=== PATIENT | male | born 1930 | race Caucasian/White ===

== ENCOUNTER → 2016-06-07 | Outpatient (CLI) | payer MEDICARE ==
--- NOTE | 2016-06-07 20:08 | CT ---
EXAMINATION TYPE: CT brain wo con DATE OF EXAM: 06/07/2016 7:46 PM COMPARISON: NONE HISTORY: Headache to right restoration. CT DLP: 1135.00 mGycm Automated exposure control for dose reduction was used. FINDINGS: There is cerebral cortical atrophy. There is no mass effect nor midline shift. There is no sign of in tracranial hemorrhage. The calvarium is intact. IMPRESSION: Cerebral atrophy. No acute intracranial abnormality. There is noted 5 mm calcification or metallic de nsity at the skin surface of the right temporal region.
== END | disposition home or self-care (01) ==
LOC: RADCTMAIN 17:59
PROVIDERS: ATTEND Family Medicine
DX: G31.9 Degenerative disease of nervous system, unspecified (principal); G43.909 Migraine, unspecified, not intractable, without status migrainosus
CPT/HCPCS: 36415; 70450; 82565; 84520

== ENCOUNTER → 2016-11-25 | Outpatient (CLI) | payer MEDICARE ==
[2016-11-25 11:25] LABS: CH 33.5; CHCM 32.7; HCT 42.2 % (39.0-53.0); HDW 2.74; HGB 13.2 gm/dL (13.0-17.5); MCH 32.2 pg (25.0-35.0); MCHC 31.3 g/dL (31.0-37.0); MCV 103.1 fL (80.0-100.0); Macrocytosis Slight; Mean Platelet Volume 7.9; RBC 4.09 m/uL (4.30-5.90); RDW 14.7 % (11.5-15.5); WBC 7.2 k/uL (3.8-10.6)
[2016-11-25 12:03] LABS: Calcium 8.7 mg/dL (8.4-10.2); Phosphorous 3.9 mg/dL (2.5-4.5); Potassium 5.4 mmol/L (3.5-5.1); Uric Acid 4.9 mg/dL (3.5-8.5)
[2016-11-25 13:56] LABS: Hemoglobin A1C 6.2 % (4.2-6.1)
[2016-11-25 16:44] LABS: Iron Saturation 27.97 (15.00-50.00)
== END | disposition home or self-care (01) ==
LOC: LABWHC1 10:42
PROVIDERS: ATTEND Internal Medicine Nephrology
DX: D64.9 Anemia, unspecified (principal); N18.3 Chronic kidney disease, stage 3 (moderate); E21.3 Hyperparathyroidism, unspecified; E53.9 Vitamin B deficiency, unspecified; R80.9 Proteinuria, unspecified; M10.9 Gout, unspecified; E78.5 Hyperlipidemia, unspecified
CPT/HCPCS: 36415; 80048; 82043; 82306; 82570; 82728; 83036; 83540; 83550; 83735; 83970; 84100; 84550; 85027

== ENCOUNTER 2017-01-05 14:23 | Emergency (ER) | payer MEDICARE ==
--- NOTE | 2017-01-05 15:20 | ED ---
Animal Bite HPI - General Chief Complaint: Animal Bite Stated Complaint: cat bite Time Seen by Provider: 01/05/17 15:00 Source: patient Mode of arrival: ambulatory Limitations: no limitations - History of Present Illness Initial Comments: Patient is an 86-year-old male who presents with a chief complaint of right wrist pain secondary to a cat bite. The Bite happened on Sunday. Patient states that he has been soaking it in salt water. He is here with his daughter today who was concerned that his arm may be infected. Patient does not describe much pain to the wrist. He does not have any surrounding erythema or fluctuance. He has full motion of his wrist and fingers. Patient has no other concerns at this time. Patient has a medical history of stage IV kidney failure , otherwise medical history is noncontributory. Patient has no medical ALLERGIES. - Related Data Home Medications Medication Instructions Recorded Confirmed Allopurinol 100 mg PO DAILY 10/20/13 01/05/17 Levothyroxine Sodium 150 mcg PO DAILY 10/20/13 01/05/17 Atorvastatin [Lipitor] 20 mg PO HS 01/05/17 01/05/17 Benazepril HCl [Lotensin] 40 mg PO DAILY 01/05/17 01/05/17 Furosemide [Lasix] 40 mg PO DAILY 01/05/17 01/05/17 Gabapentin [Neurontin] 100 mg PO QID 01/05/17 01/05/17 Previous Rx's Medication Instructions Recorded Amoxicillin/Potassium Clav 1 tab PO Q12HR 10 Days #20 tab 01/05/17 [Augmentin 875-125 Tablet] Allergies Allergy/AdvReac Type Severity Reaction Status Date / Time No Known Allergies Allergy Verified 01/05/17 14:59 Review of Systems ROS Statement: Those systems with pertinent positive or pertinent negative responses have been documented in the HPI. ROS Other: All systems not noted in ROS Statement are negative. Constitutional: Denies: fever Eyes: Denies: vision change ENT: Denies: ear pain, throat pain Respiratory: Denies: cough Cardiovascular: Denies: chest pain Endocrine: Denies: fatigue Gastrointestinal: Denies: abdominal pain, nausea, vomiting Genitourinary: Denies: dysuria Musculoskeletal: Denies: back pain Skin: Reports: lesions Neurological: Denies: headache Past Medical History Past Medical History: Heart Failure, COPD, Diabetes Mellitus, Hearing Disorder / Deafness, Hyperlipidemia, Hypertension, Pneumonia, Thyroid Disorder Additional Past Medical History / Comment(s): AAA, bells palsy [place] History of Any Multi-Drug Resistant Organisms: None Reported Additional Past Surgical History / Comment(s): Lasik 2010, Recent Leg surgery in August 2013 "Laser for vericose veins" Past Psychological History: Depression Smoking Status: Former smoker Past Alcohol Use History: Occasional Past Drug Use History: None Reported - Past Family History Mother Family Medical History: Diabetes Mellitus Sister(s) Family Medical History: Diabetes Mellitus General Exam Limitations: no limitations General appearance: alert, in no apparent distress Head exam: Present: atraumatic, normocephalic Eye exam: Present: PERRL ENT exam: Present: normal exam, other (Patient is very hard of hearing) Neck exam: Present: normal inspection Respiratory exam: Present: normal lung sounds bilaterally Cardiovascular Exam: Present: regular rate, normal rhythm GI/Abdominal exam: Present: soft. Absent: distended, tenderness, guarding Rectal exam: Present: deferred Extremities exam: Present: tenderness, other (Patient has 4 puncture wounds on his lateral right wrist. There is no fluctuance however there is a small area of swelling. Erythema is confined to the puncture wounds. There is no tenderness to palpation of the tendon sheath. Patient has full range of motion of the left and right wrist. He has normal median, ulnar, and radial nerve function.) Back exam: Present: normal inspection Neurological exam: Present: alert Psychiatric exam: Present: normal affect, normal mood Skin exam: Present: warm, dry Course Vital Signs 01/05/17 14:30 Temperature 97.5 F L Pulse Rate 49 L Respiratory 18 Rate Blood Pressure 209/81 O2 Sat by Pulse 99 Oximetry Medical Decision Making - Medical Decision Making Patient is an 86-year-old male with stable vital signs presents with a chief complaint of a Bite to the right wrist. The area is mildly swollen though does not appear to be erythematous or fluctuant. Given the benign nature of the patient's exam, he will be started on Augmentin for 10 days and instructed to follow up with primary care. He is daughter were given explicit instructions on signs and symptoms that should prompt return visit to the emergency department. Both the patient and his daughter verbalize understanding. At this time, the patient is stable for discharge. Disposition Clinical Impression: Bite by animal, Cat bite Disposition: HOME SELF-CARE Condition: Good Instructions: Animal Bite (ED) Prescriptions: Amoxicillin/Potassium Clav [Augmentin 875-125 Tablet] 1 tab PO Q12HR 10 Days # 20 tab Referrals: Adam Ruelas MD [Primary Care Provider] - 1-2 days
[2017-01-05 15:45] VITALS: BP 187/90; PULSE 78; RESP 16; TEMP 97.4
== END 2017-01-05 15:44 | disposition home or self-care (01) ==
LOC: EC 14:23
DX: S61.531A Puncture wound without foreign body of right wrist, initial encounter (principal); H91.90 Unspecified hearing loss, unspecified ear; E78.5 Hyperlipidemia, unspecified; I13.0 Hypertensive heart and chronic kidney disease with heart failure and stage 1 through stage 4 chronic kidney disease, or unspecified chronic kidney disease; I50.9 Heart failure, unspecified; N18.4 Chronic kidney disease, stage 4 (severe); E07.9 Disorder of thyroid, unspecified; Z87.891 Personal history of nicotine dependence; Z79.899 Other long term (current) drug therapy; W55.01XA Bitten by cat, initial encounter
CPT/HCPCS: 99283

== ENCOUNTER → 2017-02-21 | Outpatient (CLI) | payer MEDICARE ==
--- NOTE | 2017-02-21 16:13 | CT ---
EXAMINATION TYPE: CT chest wo con DATE OF EXAM: 02/21/2017 COMPARISON: 09/30/2013 HISTORY: Mediastinal widening. CT DLP: 392.10 mGycm, Automated exposure control for dose reduction was used. CONTRAST: TECHNIQUE: Axial images were obtained at 5 mm thick sections. Reconstructed images are reviewed on [employer] computer in the coronal plane. FINDINGS: Portion of the thyroid visualized is normal. No suspicious lung nodules or focal infiltrates are present. No enlarged mediastinal or hilar adenopathy is evident. The ascending aorta diameter at the level o f the main pulmonary artery is 4.3 cm. There is tortuosity of the aorta. The main pulmonary artery d iameter at the bifurcation is 3.5 cm. Moderate coronary artery calcification is present. Limited CT sections are obtained through the upper abdomen. Abdomen is essentially unremarkable. IMPRESSIONS: 1. 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 This is tortuous and can account for the prominence of the mediastinum.
== END | disposition home or self-care (01) ==
LOC: RADCTMAIN 15:03
PROVIDERS: ATTEND Family Medicine
DX: I71.2 Thoracic aortic aneurysm, without rupture (principal); I28.1 Aneurysm of pulmonary artery
CPT/HCPCS: 36415; 71250; 82565; 84520

== ENCOUNTER 2017-08-28 16:09 | Inpatient (IN) | payer MEDICARE ==
[2017-08-28 17:02] LABS: Basophils % (A) 1 %; Eosinophils # (A) 0.2 k/uL (0-0.7); Eosinophils % (A) 3 %; HCT 39.3 % (39.0-53.0); HGB 12.9 gm/dL (13.0-17.5); Lymphocytes # (A) 1.3 k/uL (1.0-4.8); Lymphocytes % (A) 19 %; MCH 31.9 pg (25.0-35.0); MCHC 32.8 g/dL (31.0-37.0); MCV 97.3 fL (80.0-100.0); Mean Platelet Volume 7.1; Monocytes # (A) 0.4 k/uL (0-1.0); Monocytes % (A) 6 %; Neutrophils # (A) 4.7 k/uL (1.3-7.7); Neutrophils % (A) 70 %; Platelet Count 193 k/uL (150-450); RBC 4.04 m/uL (4.30-5.90); RDW 13.6 % (11.5-15.5); WBC 6.7 k/uL (3.8-10.6)
[2017-08-28 17:08] LABS: INR 1.1 (<1.2); Prothrombin Time 10.3 sec (9.0-12.0)
[2017-08-28 17:11] LABS: Albumin 3.8 g/dL (3.5-5.0); Calcium 8.6 mg/dL (8.4-10.2); Potassium 6.1 mmol/L (3.5-5.1); Total Bilirubin 0.4 mg/dL (0.2-1.3)
[2017-08-28] MEDS ORDERED: CALCIUM CHLORIDE 1,000 MG in SODIUM CHLORIDE 0.9% 100 ML IVPB STA (17:17)
[2017-08-28] MEDS ORDERED: SODIUM BICARB 8.4% 50 ML SYR (1 MEQ/ML) IV ONE (17:19)
[2017-08-28] MEDS ORDERED: ALBUTEROL NEB (CONC) 2.5 MG/0.5 ML INHALATION ONE (17:19)
[2017-08-28] MEDS ORDERED: DEXTROSE 50%-WATER 50 ML SYRINGE IVP ONE (17:19)
[2017-08-28] MEDS ORDERED: INSULIN REGULAR 100 UNIT/ML VIAL IV ONE (17:19)
--- NOTE | 2017-08-28 17:28 | ED ---
General Adult HPI - General Chief complaint: Recheck/Abnormal Lab/Rx Stated complaint: abn labs Source: patient, family Mode of arrival: ambulatory Limitations: no limitations - History of Present Illness Initial comments: Dictation was produced using [employer]AR[employer] dictation software. please excuse any grammatical, word or spelling errors. Chief Complaint: 87-year-old male past medical history of heart failure, COPD, diabetes number dyslipidemia, hypertension, thyroid disease presents with abnormal lab. History of Present Illness: Patient was instructed to come to the emergency department for abnormal laboratory evaluation. Patient was told that his potassium was severely elevated. He was called by primary care physician and told to come to the emergency department. Patient denies any complaints at this time. He requests to go home. The ROS documented in this emergency department record has been reviewed and confirmed by me. Those systems with pertinent positive or negative responses have been documented in the HPI. All other systems are other negative and/or noncontributory. - Related Data Home Medications Medication Instructions Recorded Confirmed Allopurinol 100 mg PO DAILY 10/20/13 08/28/17 Levothyroxine Sodium 150 mcg PO DAILY 10/20/13 08/28/17 Atorvastatin [Lipitor] 20 mg PO HS 01/05/17 08/28/17 Benazepril HCl [Lotensin] 40 mg PO DAILY 01/05/17 08/28/17 Furosemide [Lasix] 20 mg PO DAILY 01/05/17 08/28/17 Aspirin [Adult Low Dose Aspirin EC] 81 mg PO DAILY 08/28/17 08/28/17 Cholecalciferol (Vitamin D3) 2,000 unit PO DAILY 08/28/17 08/28/17 [Vitamin D3] Allergies Allergy/AdvReac Type Severity Reaction Status Date / Time No Known Allergies Allergy Verified 08/28/17 16:48 Review of Systems ROS Statement: Those systems with pertinent positive or pertinent negative responses have been documented in the HPI. ROS Other: All systems not noted in ROS Statement are negative. Past Medical History Past Medical History: Heart Failure, COPD, Diabetes Mellitus, Hearing Disorder / Deafness, Hyperlipidemia, Hypertension, Pneumonia, Thyroid Disorder Additional Past Medical History / Comment(s): AAA, bells palsy [place] History of Any Multi-Drug Resistant Organisms: None Reported Additional Past Surgical History / Comment(s): Lasik 2009, Recent Leg surgery in August 2013 "Laser for vericose veins" Past Psychological History: Depression Smoking Status: Former smoker Past Alcohol Use History: Occasional Past Drug Use History: None Reported - Past Family History Mother Family Medical History: Diabetes Mellitus Sister(s) Family Medical History: Diabetes Mellitus General Exam - General Exam Comments Initial Comments: PHYSICAL EXAM: General Impression: Alert and oriented x3, not in acute distress HEENT: Normocephalic atraumatic, extra-ocular movements intact, pupils equal and reactive to light bilaterally, mucous membranes moist. Cardiovascular: Heart regular rate and rhythm, S1&S2 audible, no murmurs, rubs or gallops Chest: Lungs clear to auscultation bilaterally, no rhonchi, no wheeze, no rales Abdomen: Bowel sounds present, abdomen soft, non-tender, non-distended, no organomegaly Musculoskeletal: Pulses present and equal in all extremities, no peripheral edema Motor: Power 5/5 bilaterally, no focal deficits noted Neurological: CN II-XII grossly intact, no focal motor or sensory deficits noted Skin: Intact with no visualized rashes Psych: Normal affect and mood Limitations: no limitations Course Vital Signs 08/28/17 08/28/17 08/28/17 16:12 16:52 17:00 Temperature 98.0 F Pulse Rate 37 L 39 L Pulse Rate [ 35 L [employer]veler ] Respiratory 20 18 Rate Blood Pressure 201/66 168/70 O2 Sat by Pulse 99 98 Oximetry 08/28/17 08/28/17 08/28/17 17:43 17:50 18:07 Temperature Pulse Rate 41 L 40 L 61 Pulse Rate [ [place] [employer]veler ] Respiratory 18 Rate Blood Pressure 177/76 O2 Sat by Pulse 97 Oximetry 08/28/17 18:52 Temperature Pulse Rate 95 Pulse Rate [ [employer]veler ] Respiratory 18 Rate Blood Pressure 153/72 O2 Sat by Pulse 97 Oximetry Medical Decision Making - Medical Decision Making ED course: Patient is a 79-year-old male presents with abnormal outpatient lab evaluation. Patient's potassium which is gone here in our facility shows a level of 6.1. Patient is profoundly bradycardic upon arrival. Heart rate is 37. EKG showed progressing sine wave pattern which is characteristic of hyperglycemia. Blood pressure 201/66. Physical examination is benign. Patient has no complaints at this time.Laboratory evaluation obtained. CBC is unremarkable. Cardiac panel is unremarkable. Patient's potassium of 6.1. Elevated renal markers of 2.50 which is been trending upwards recently compared to previous labs. Patient is a non-gap acidosis. Glucose 103. Rest labs unremarkable. Patient treated with hyperkalemia cocktail with improvement of heart rate at this point no clear etiology of patient's hyperkalemia however suspect that this is secondary to chronic kidney disease. Patient admitted to hospitalist. Patient understandable and agreeable to plan. EKG Interpretation: A 12 lead EKG was obtained. It was interpreted by myself and attending physician. There is a P wave before every QRS complex. Rate is 35. Rhythm is bradycardic, RI interval 174, Q [place] 152, QTc 396. QT is not prolonged. No ST segment depression or elevation. This EKG is consistent with hyperkalemia. - Lab Data Result diagrams: 08/28/17 16:50 08/28/17 16:50 Lab Results 08/28/17 08/28/17 08/28/17 Range/Units 16:50 16:50 16:50 WBC 6.7 (3.8-10.6) k/uL RBC 4.04 L (4.30-5.90) m/uL Hgb 12.9 L (13.0-17.5) gm/dL Hct 39.3 (39.0-53.0) % MCV 97.3 (80.0-100.0) fL MCH 31.9 (25.0-35.0) pg MCHC 32.8 (31.0-37.0) g/dL RDW 13.6 (11.5-15.5) % Plt Count 193 (150-450) k/uL Neutrophils % 70 % Lymphocytes % 19 % Monocytes % 6 % Eosinophils % 3 % Basophils % 1 % Neutrophils # 4.7 (1.3-7.7) k/uL Lymphocytes # 1.3 (1.0-4.8) k/uL Monocytes # 0.4 (0-1.0) k/uL Eosinophils # 0.2 (0-0.7) k/uL Basophils # 0.0 (0-0.2) k/uL PT (9.0-12.0) sec INR (<1.2) Sodium 139 (137-145) mmol/L Potassium 6.1 H (3.5-5.1) mmol/L Chloride 109 H (98-107) mmol/L Carbon Dioxide 20 L (22-30) mmol/L Anion Gap 10 mmol/L BUN 62 H (9-20) mg/dL Creatinine 2.50 H (0.66-1.25) mg/dL Est GFR (CKD-EPI)AfAm 26 (>60 ml/min/1.73 sqM) Est GFR (CKD-EPI)NonAf 22 (>60 ml/min/1.73 sqM) Glucose 103 H (74-99) mg/dL POC Glucose (mg/dL) (75-99) mg/dL POC Glu [employer] Consultant ID Calcium 8.6 (8.4-10.2) mg/dL Total Bilirubin 0.4 (0.2-1.3) mg/dL AST 20 (17-59) U/L ALT 24 (21-72) U/L Alkaline Phosphatase 57 (38-126) U/L Creatine Kinase (55-170) U/L Total Creatine Kinase 69 (55-170) U/L CK-MB (CK-2) 1.8 (0.0-2.4) ng/mL CK-MB (CK-2) Rel Index 2.6 Troponin I 0.023 (0.000-0.034) ng/mL Total Protein 6.0 L (6.3-8.2) g/dL Albumin 3.8 (3.5-5.0) g/dL 08/28/17 08/28/17 08/28/17 Range/Units 16:50 16:50 17:32 WBC (3.8-10.6) k/uL RBC (4.30-5.90) m/uL Hgb (13.0-17.5) gm/dL Hct (39.0-53.0) % MCV (80.0-100.0) fL MCH (25.0-35.0) pg MCHC (31.0-37.0) g/dL RDW (11.5-15.5) % Plt Count (150-450) k/uL Neutrophils % % Lymphocytes % % Monocytes % % Eosinophils % % Basophils % % Neutrophils # (1.3-7.7) k/uL Lymphocytes # (1.0-4.8) k/uL Monocytes # (0-1.0) k/uL Eosinophils # (0-0.7) k/uL Basophils # (0-0.2) k/uL PT 10.3 (9.0-12.0) sec INR 1.1 (<1.2) Sodium (137-145) mmol/L Potassium (3.5-5.1) mmol/L Chloride (98-107) mmol/L Carbon Dioxide (22-30) mmol/L Anion Gap mmol/L BUN (9-20) mg/dL Creatinine (0.66-1.25) mg/dL Est GFR (CKD-EPI)AfAm (>60 ml/min/1.73 sqM) Est GFR (CKD-EPI)NonAf (>60 ml/min/1.73 sqM) Glucose (74-99) mg/dL POC Glucose (mg/dL) 92 (75-99) mg/dL POC Glu [employer] Consultant ID Erica Arroyo Calcium (8.4-10.2) mg/dL Total Bilirubin (0.2-1.3) mg/dL AST (17-59) U/L ALT (21-72) U/L Alkaline Phosphatase (38-126) U/L Creatine Kinase 68 (55-170) U/L Total Creatine Kinase (55-170) U/L CK-MB (CK-2) (0.0-2.4) ng/mL CK-MB (CK-2) Rel Index Troponin I (0.000-0.034) ng/mL Total Protein (6.3-8.2) g/dL Albumin (3.5-5.0) g/dL Disposition Clinical Impression: Hyperkalemia Disposition: ADMITTED IP TO THIS HOSP Condition: Fair Referrals: Adam Ruelas MD [Primary Care Provider] - 1-2 days Decision Time: 19:01
[2017-08-28 17:34] LABS: Glucose,Whole Blood 92 mg/dL (75-99)
[2017-08-28 17:35] LABS: Creatine Kinase MB 1.8 ng/mL (0.0-2.4); Troponin I 0.023 ng/mL (0.000-0.034)
--- NOTE | 2017-08-28 18:29 | XR ---
EXAMINATION: XR chest 1V DATE AND TIME: 08/28/2017 5:35 PM ORDERING PROVIDER: Alberto Campbell DO CLINICAL INDICATION: Pain lab abnormalities TECHNIQUE: AP upright portable COMPARISON: 10/26/2013 DESCRIPTION: Lungs show scattered bilateral ill-defined predominantly linear shadows, entirely nonspecific. No fra nk pneumonia or pulmonary edema evidence. The pleural spaces show blunting of the right costophrenic angle suggesting small right pleural effus ion not seen on the prior study. Differential diagnosis for this finding is chronic pleural thickenin g. Remainder of the pleural space examination unremarkable. The cardiac silhouette is mildly enlarged, unchanged. Tortuosity of the aorta is noted again. The skeletal structures are intact without acute findings. The soft tissues are negative for acute findings. IMPRESSION: Small right pleural effusion evident, as above.
[2017-08-28] MEDS ORDERED: NALOXONE 0.4 MG/ML 1 ML VIAL IV PRN (18:57)
[2017-08-28 20:43] VITALS: BMI 29.6
[2017-08-28] MEDS: ATORVASTATIN 20 MG TAB PO SCH (20:50)
[2017-08-28 21:23] LABS: Glucose,Whole Blood 126 mg/dL (75-99)
[2017-08-28] MEDS ORDERED: HEPARIN SODIUM,PORCINE 5,000 UNIT/ML 1 ML VIAL ONE (23:43)
[2017-08-29] MEDS: HEPARIN SODIUM,PORCINE 5,000 UNIT/ML 1 ML VIAL SQ SCH ×4 (05:23→22:35)
[2017-08-29 05:59] LABS: Glucose,Whole Blood 93 mg/dL (75-99)
[2017-08-29] MEDS: INSULIN ASPART 100 UNIT/ML 1 ML 10 ML VIAL SQ SCH ×4 (06:10→21:22)
[2017-08-29] MEDS: LEVOTHYROXINE 75 MCG TAB PO SCH (06:27)
[2017-08-29] MEDS ORDERED: LISINOPRIL 20 MG TAB PO SCH (09:00)
[2017-08-29 09:52] LABS: Basophils % (A) 1 %; Eosinophils # (A) 0.1 k/uL (0-0.7); Eosinophils % (A) 2 %; HCT 40.9 % (39.0-53.0); HGB 13.1 gm/dL (13.0-17.5); Lymphocytes % (A) 17 %; MCH 31.6 pg (25.0-35.0); MCV 98.7 fL (80.0-100.0); Mean Platelet Volume 8.3; Monocytes # (A) 0.3 k/uL (0-1.0); Monocytes % (A) 5 %; Neutrophils # (A) 4.7 k/uL (1.3-7.7); Neutrophils % (A) 75 %; Platelet Count 186 k/uL (150-450); RBC 4.14 m/uL (4.30-5.90); RDW 13.5 % (11.5-15.5); WBC 6.2 k/uL (3.8-10.6)
[2017-08-29 10:07] LABS: Calcium 9.2 mg/dL (8.4-10.2); Potassium 5.8 mmol/L (3.5-5.1)
--- NOTE | 2017-08-29 11:06 | P.CRDCN ---
History of Present Illness Consult date: 08/29/17 Requesting physician: Adam Ruelas Reason for Consult (text): bradycardia Chief complaint: Elevated potassium History of present illness: This is a pleasant 87-year-old gentleman who is quite hard of hearing , he has history of prior diastolic congestive heart failure, COPD, diabetes, hyperlipidemia, hypertension, hypothyroidism, renal failure, patient came into the hospital to have some outpatient labs drawn and then states that he went out for lunch. Just prior to starting his lunch he received a phone call that he needed to come to the hospital for admission because his potassium level was significantly elevated. Patient overall states he is feeling very well, no chest pain, no difficulty in breathing, no dizziness, no lightheadedness. Chest x-ray on admission revealed a small right pleural effusion. EKG on admission showed a marked sinus bradycardia with a right bundle branch block pattern, left anterior fascicular block, and first-degree AV block. Blood pressure on arrival 201/66, heart rate 38, 99% on room air. Blood pressure this morning 156/70 heart rate in the 40s, 97% on room air. White blood cell count 6.2, hemoglobin 13.1, platelet count 186. Sodium 143, potassium 5.8, it was 6.1 on admission, BUN on admission 62 creatinine 2.5, this morning 58 and 2.3. Troponin 0.023. At the time of my examination this morning, patient feels well, sitting up in the chair, no complaints. Past Medical History Past Medical History: Heart Failure, COPD, Diabetes Mellitus, Hearing Disorder / Deafness, Hyperlipidemia, Hypertension, Pneumonia, Thyroid Disorder Additional Past Medical History / Comment(s): AAA, bells palsy [place] History of Any Multi-Drug Resistant Organisms: None Reported Additional Past Surgical History / Comment(s): Lasik 2009, Recent Leg surgery in August 2013 "Laser for vericose veins" Past Anesthesia/Blood Transfusion Reactions: No Reported Reaction Past Psychological History: Depression Smoking Status: Former smoker Past Alcohol Use History: Occasional Past Drug Use History: None Reported - Past Family History Mother Family Medical History: Diabetes Mellitus Sister(s) Family Medical History: Diabetes Mellitus Medications and Allergies Home Medications Medication Instructions Recorded Confirmed Type Allopurinol 100 mg PO DAILY 10/20/13 08/28/17 History Levothyroxine Sodium 150 mcg PO DAILY 10/20/13 08/28/17 History Atorvastatin [Lipitor] 20 mg PO HS 01/05/17 08/28/17 History Benazepril HCl [Lotensin] 40 mg PO DAILY 01/05/17 08/28/17 History Furosemide [Lasix] 20 mg PO DAILY 01/05/17 08/28/17 History Aspirin [Adult Low Dose Aspirin EC] 81 mg PO DAILY 08/28/17 08/28/17 History Cholecalciferol (Vitamin D3) 2,000 unit PO DAILY 08/28/17 08/28/17 History [Vitamin D3] Allergies Allergy/AdvReac Type Severity Reaction Status Date / Time No Known Allergies Allergy Verified 08/28/17 16:48 Physical Exam Vitals: Vital Signs Temp Pulse Pulse Resp BP BP Pulse Ox 08/29/17 08:00 97.1 F L 42 L 156/71 97 08/28/17 20:56 85 19 08/28/17 20:54 97.4 F L 85 19 158/88 99 08/28/17 19:59 98.5 F 88 18 162/78 96 08/28/17 19:31 97.4 F L 85 19 158/88 99 08/28/17 18:52 95 18 153/72 97 08/28/17 18:07 61 08/28/17 17:50 40 L 08/28/17 17:43 41 L 18 177/76 97 08/28/17 17:00 35 L 08/28/17 16:52 39 L 18 168/70 98 08/28/17 16:12 98.0 F 37 L 20 201/66 99 Intake and Output 08/28/17 08/29/17 08/29/17 22:59 06:59 14:59 Intake Total 200 Output Total 450 Balance 200 -450 Intake: Intake, IV Titration 100 Amount Calcium Chloride 1,000 mg 100 In Sodium Chloride 0.9% 100 ml @ 100 mls/hr IVPB ONCE STA Rx#:[id number] Oral 100 Output: Urine 450 Other: Voiding Method Urinal # Voids 1 Weight 85.9 kg 85.9 kg PHYSICAL EXAMINATION: GENERAL: 87-year-old gentleman in no apparent distress at the time of my examination HEENT: Head is atraumatic, normocephalic. Pupils equal, round. Sclera anicteric. Conjunctiva are clear. Mucous membranes of the mouth are moist. Neck is supple. There is no elevated jugular venous pressure.] bruit is heard. HEART EXAMINATION: Heart S1, S2 normal. No murmur or gallop heard. CHEST EXAMINATION: Lungs are clear to auscultation and precussion. No chest wall tenderness is noted on palpation or with deep breathing. ABDOMEN: Soft, nontender. Bowel sounds are heard. No organomegaly noted. EXTREMITIES: 2+ peripheral pulses with no evidence of peripheral edema and no calf tenderness noted. NEUROLOGIC patient is awake, alert and oriented ?-3. . Results 08/29/17 09:41 08/29/17 09:41 Cardiac Enzymes 08/28/17 08/28/17 Range/Units 16:50 16:50 AST 20 (17-59) U/L CK-MB (CK-2) 1.8 (0.0-2.4) ng/mL Troponin I 0.023 (0.000-0.034) ng/mL Coagulation 08/28/17 Range/Units 16:50 PT 10.3 (9.0-12.0) sec CBC 08/28/17 08/29/17 Range/Units 16:50 09:41 WBC 6.7 6.2 (3.8-10.6) k/uL RBC 4.04 L 4.14 L (4.30-5.90) m/uL Hgb 12.9 L 13.1 (13.0-17.5) gm/dL Hct 39.3 40.9 (39.0-53.0) % Plt Count 193 186 (150-450) k/uL Comprehensive Metabolic Panel 08/28/17 08/29/17 Range/Units 16:50 09:41 Sodium 139 143 (137-145) mmol/L Potassium 6.1 H 5.8 H (3.5-5.1) mmol/L Chloride 109 H 108 H (98-107) mmol/L Carbon Dioxide 20 L 25 (22-30) mmol/L BUN 62 H 58 H (9-20) mg/dL Creatinine 2.50 H 2.37 H (0.66-1.25) mg/dL Glucose 103 H 105 H (74-99) mg/dL Calcium 8.6 9.2 (8.4-10.2) mg/dL AST 20 (17-59) U/L ALT 24 (21-72) U/L Alkaline Phosphatase 57 (38-126) U/L Total Protein 6.0 L (6.3-8.2) g/dL Albumin 3.8 (3.5-5.0) g/dL Current Medications Generic Name Dose Route Start Last Admin Trade Name Freq PRN Reason Stop Dose Admin Aspirin 81 mg 08/29/17 09:00 Aspirin PO DAILY JEREL Atorvastatin Calcium 20 mg 08/28/17 21:00 08/28/17 20:50 Lipitor PO 20 mg HS JEREL Administration Furosemide 20 mg 08/29/17 09:00 Lasix PO DAILY JEREL Heparin Sodium (Porcine) 5,000 unit 08/29/17 00:00 08/29/17 08:54 Heparin SQ 5,000 unit Q8HR JEREL Administration Insulin Aspart 0 unit 08/29/17 07:30 08/29/17 06:10 Novolog SQ Not Given ACHS [facility] Protocol Levothyroxine Sodium 150 mcg 08/29/17 06:30 08/29/17 06:27 Synthroid PO 150 mcg DAILY@0630 JEREL Administration Naloxone HCl 0.2 mg 08/28/17 18:57 Narcan IV Q2M PRN Opioid Reversal Intake and Output 08/28/17 08/29/17 08/29/17 22:59 06:59 14:59 Intake Total 200 Output Total 450 Balance 200 -450 Intake: Intake, IV Titration 100 Amount Calcium Chloride 1,000 mg 100 In Sodium Chloride 0.9% 100 ml @ 100 mls/hr IVPB ONCE STA Rx#:[id number] Oral 100 Output: Urine 450 Other: Voiding Method Urinal # Voids 1 Weight 85.9 kg 85.9 kg 08/29/17 09:41 08/29/17 09:41 EKG Interpretations (text) EKG shows a sinus bradycardia with a right bundle branch block pattern, left anterior fascicular block and first-degree AV block Assessment and Plan Plan: Assessment and plan #1 hyperkalemia #2 bradycardia, likely secondary to hyperkalemia #3 hypothyroidism history #4 renal failure #5 hyperlipidemia #6 diabetes #7 COPD #8 hypertension Plan We will obtain an echocardiogram with Doppler study. Check a free T4 and TSH level. Hold the lisinopril. Recheck lytes BUN and creatinine. Continue to monitor the patient, when the potassium level normalizes, if patient continues to be significantly bradycardic, he may require implantation of a permanent pacemaker. He is not on any AV node blocking agents at home. Further recommendations to follow. DNP note has been reviewed, I agree with a documented findings and plan of care. Patient was seen and examined.
[2017-08-29 11:10] LABS: Glucose,Whole Blood 108 mg/dL (75-99)
[2017-08-29] MEDS: ASPIRIN 81 MG PO SCH (12:22)
[2017-08-29] MEDS: FUROSEMIDE 20 MG TAB PO SCH (12:22)
--- NOTE | 2017-08-29 12:59 | HP ---
HISTORY AND PHYSICAL \CHIEF COMPLAINT: CKD with exacerbation and hyperkalemia. HISTORY OF PRESENT ILLNESS: This is another admission for this 87-year-old white male, long-standing history of type 2 diabetes mellitus, hypertension, and renal failure. He went to have blood work drawn for Nephrology and was told to come to the emergency room because potassium is elevated. BUN and creatinine were also elevated. REVIEW OF SYSTEMS: He denies any nausea, confusion, lethargy, shortness of breath, etc. Past medical history, family history personal and social histories demonstrates he has no allergies and he is on: 1. Allopurinol 100 mg once a day. 2. Levothyroxine 0.15 once a day. 3. Atorvastatin 20 mg at bedtime. 4. Benazepril 40 mg every day. 5. Gabapentin 100 mg 4 times a day. 6. Lasix 20 mg once a day. 7. Aspirin 325 once a day. The remainder of his history is unremarkable. He did smoke but does not any longer. PHYSICAL EXAM: Blood pressure 144/68 with pulse 52, respirations of 18, temperature 95.6. GENERAL: He appeared to be well-developed, well-nourished, and well-preserved and in no acute distress. Skin color is normal, skin is warm, dry. Lymph nodes are not enlarged. Head, ears, eyes, nose, mouth, and throat were normal. Neck veins are not distended. Thyroid is not enlarged. Chest is clear and breath sounds are heard on both sides. He has the posterior chest scar. Cardiac exam is normal and the abdomen is soft and protuberant. Extremities normal, neurologically he is intact. IMPRESSION: 1. Acute exacerbation of chronic renal failure. 2. Hyperkalemia. 3. ASCVD. 4. Hypertension. 5. Type 2 diabetes mellitus. PLAN: 1. Bed rest. 2. IV fluids. 3. Nephrology consult. 4. Rehydrate. 5. Correct hyperkalemia. MMODL / IJN: [id number] /
--- NOTE | 2017-08-29 13:14 | PN ---
PROGRESS NOTE CHIEF COMPLAINT: Acute renal failure. HISTORY OF PRESENT ILLNESS: This gentleman is doing fine. He has had no shortness of breath, chest pain, etc. His pulse has picked up. It was in the 30s when he came. PHYSICAL EXAM: Chest is clear. Cardiac exam demonstrates irregularly irregular pulse. Abdomen is soft, nontender. IMPRESSION: 1. Acute exacerbation of renal failure. 2. Bradycardia. 3. Hyperkalemia. 4. Hypertension. 5. Diabetes. PLAN: Continue with IV fluids and await recommendations from Cardiology. MMODL / IJN: [id number] /
[2017-08-29] MEDS ORDERED: SODIUM POLYSTYRENE SULFONATE 30 GM/120 ML BOTTLE RECTAL STA (13:41)
[2017-08-29] MEDS ORDERED: SODIUM POLYSTYRENE SULFONATE 15 GM/60 ML BOTTLE PO STA (14:43)
--- NOTE | 2017-08-29 15:38 | CONS ---
CONSULTATION REASON FOR CONSULT: Renal failure. HISTORY OF PRESENT ILLNESS: Patient is an 87-year-old male who was admitted to the hospital yesterday with the abnormal labs. He was called back as his potassium was high at the primary care physician's office. When patient came into the hospital, his potassium was 6.1, his creatinine was 2.5 mg/dL. The patient is maintained on KEVIN inhibitors at home. He denied use of any nonsteroidal anti-inflammatory agents. There is no underlying GI bleed. Patient does have chronic kidney disease with previous creatinine at 2.0 in February of 2017, as well as November of 2016. 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 Blood pressure has not been low since admission. In fact it is on the higher side. The patient's heart rate was low at 42 beats per minute. PAST MEDICAL HISTORY: Chronic kidney disease, hypertension, COPD, type 2 diabetes, deafness, history of CHF and abdominal aortic aneurysm. History of Santos's palsy, depression. PAST SURGICAL HISTORY: Eye surgery. SOCIAL HISTORY: Negative for smoking. Patient is a former smoker. No history of drug abuse or alcohol abuse. MEDICATIONS: Medications at home prior to admission included allopurinol, Synthroid. Lipitor, Lotensin, Lasix, aspirin, vitamin D3. ALLERGIES: None. EXAMINATION: Patient is comfortable, awake, alert, oriented x3. Is not in any acute distress. Blood pressure is 156/71, heart rate was 42 per minute. He is afebrile. Examination of the heart S1, S2. Examination lungs bilateral breath sounds are heard. Abdomen is soft, nontender. Examination of the lower extremities shows no evidence of edema. APPLICATION DBA exam is grossly intact. Patient moving all 4 extremities. LAB: Show sodium 143, potassium 5.8, chloride 108, BUN 58, serum creatinine of 2.37. An echocardiogram from 2013 showed ejection fraction 50-55%. Chest x-ray on admission showed small right pleural effusion. ASSESSMENT: 1. Acute kidney injury, likely prerenal, currently slightly improved. We will discontinue the KEVIN inhibitors given the significant hyperkalemia. 2. Chronic kidney disease secondary to diabetic nephropathy. Previous UA did show evidence of proteinuria. Creatinine has been about 2.0 in February of 2017. NKF stage IV. 3. Hyperkalemia associated with chronic kidney disease. An element of acute kidney injury in the setting of use of KEVIN inhibitors, status post IV treatment yesterday. Potassium is 5.8 today. I will maintain him on low-potassium diet and hold off on KEVIN inhibitors. We will continue with low-dose Lasix. 4. Hypothyroidism. 5. Type 2 diabetes, maintained on insulin. 6. Bradycardia associated with hyperkalemia, being followed by Cardiology. PLAN: DC KEVIN inhibitors. We will give 1 dose of Kayexalate as patient is also complaining of constipation. Maintain patient on low-potassium diet. Continue with the low-dose Lasix. Repeat labs in a.m. I will check our office records. The patient does have CKD. He does need outpatient followup for CKD management. He is at stage IV. Thank you for this consultation. We will continue to follow the patient with you during his hospitalization. MAULIK / ROSE MARIEN: [id number] /
[2017-08-29 16:32] LABS: Glucose,Whole Blood 98 mg/dL (75-99)
[2017-08-29] MEDS: ATORVASTATIN 20 MG TAB PO SCH (19:44)
[2017-08-29 21:06] LABS: Glucose,Whole Blood 109 mg/dL (75-99)
[2017-08-30 06:12] LABS: Glucose,Whole Blood 85 mg/dL (75-99)
[2017-08-30] MEDS: INSULIN ASPART 100 UNIT/ML 1 ML 10 ML VIAL SQ SCH ×4 (06:24→20:47)
[2017-08-30] MEDS: LEVOTHYROXINE 75 MCG TAB PO SCH (06:25)
[2017-08-30 08:57] LABS: Appearance,Urine Clear (Clear); Bilirubin,Urine Negative (Negative); Blood,Urine Trace (Negative); Color,Urine Light Yellow; Glucose,Urine (UA) Negative (Negative); Ketones,Urine Negative (Negative); Leukocyte Esterase,Urine Negative (Negative); Mucus,Urine Rare /hpf; Nitrite,Urine Negative (Negative); Protein,Urine 1+ (Negative); RBC,Urine <1 /hpf (0-5); Specific Gravity,Urine 1.009 (1.001-1.035); Urobilinogen,Urine <2.0 mg/dL (<2.0)
[2017-08-30 09:44] LABS: Potassium 6.4 mmol/L (3.5-5.1)
[2017-08-30] MEDS: HEPARIN SODIUM,PORCINE 5,000 UNIT/ML 1 ML VIAL SQ SCH ×3 (10:09→23:40)
[2017-08-30] MEDS: ASPIRIN 81 MG PO SCH (10:10)
[2017-08-30] MEDS: FUROSEMIDE 20 MG TAB PO SCH (10:10)
--- NOTE | 2017-08-30 11:02 | ECHOF ---
Referral Reason:bradycardia MEASUREMENTS -------- HEIGHT: 170.2 cm WEIGHT: 85.7 kg BP: 156/71 RVIDd: 3.5 cm (< 3.3) IVSd: 1.2 cm (0.6 - 1.1) LVIDd: 4.7 cm (3.9 - 5.3) LVPWd: 1.2 cm (0.6 - 1.1) IVSs: 1.8 cm LVIDs: 2.7 cm LVPWs: 1.7 cm LA Diam: 4.1 cm (2.7 - 3.8) LAESV Index (A-L): 45.11 ml/m Ao Diam: 3.2 cm (2.0 - 3.7) AV Cusp: 1.7 cm (1.5 - 2.6) LA Diam: 4.4 cm (2.7 - 3.8) MV EXCURSION: 22.495 mm (> 18.000) MV EF SLOPE: 80 mm/s (70 - 150) EPSS: 0.8 cm MV E Deven: 0.46 m/s MV DecT: 415 ms MV A Deven: 0.75 m/s MV E/A Ratio: 0.61 RAP: 5.00 mmHg RVSP: 45.38 mmHg FINDINGS -------- Paced rhythm. This was a technically adequate study. The left ventricular size is normal. There is mild concentric left ventricular hypertrophy. Overa ll left ventricular systolic function is low-normal with, an EF between 50 - 55 %. The right ventricle is moderately enlarged. The left atrium is moderately dilated. LA is severely dilated >40 ml/m2 The right atrial size is normal. There is mild aortic valve sclerosis. There is mild aortic regurgitation. Mild mitral annular calcification present. Mild mitral regurgitation is present. Mild tricuspid regurgitation present. There is mild pulmonary hypertension. The right ventricular systolic pressure, as measured by Doppler, is 45.38mmHg. Trace/mild (physiologic) pulmonic regurgitation. The aortic root size is normal. There is no pericardial effusion. CONCLUSIONS -------- 1. The left ventricular size is normal. 2. There is mild concentric left ventricular hypertrophy. 3. Overall left ventricular systolic function is low-normal with, an EF between 50 - 55 %. 4. The right ventricle is moderately enlarged. 5. The left atrium is moderately dilated. 6. LA is severely dilated >40 ml/m2 7. The right atrial size is normal. 8. There is mild aortic valve sclerosis. 9. There is mild aortic regurgitation. 10. Mild mitral annular calcification present. 11. Mild mitral regurgitation is present. 12. Mild tricuspid regurgitation present. 13. There is mild pulmonary hypertension. 14. The right ventricular systolic pressure, as measured by Doppler, is 45.38mmHg. 15. Trace/mild (physiologic) pulmonic regurgitation. 16. The aortic root size is normal. 17. There is no pericardial effusion. BULK MAIL TECHNICIAN: Aura Lopez RDCS
[2017-08-30] MEDS ORDERED: INSULIN REGULAR 100 UNIT/ML VIAL IV ONE (11:19)
[2017-08-30] MEDS ORDERED: CALCIUM CHLORIDE 100 MG/ML 10 ML SYRINGE IVP STA (11:23)
[2017-08-30] MEDS ORDERED: DEXTROSE 50%-WATER 50 ML SYRINGE IVP STA (11:29)
[2017-08-30 11:33] LABS: Glucose,Whole Blood 95 mg/dL (75-99)
--- NOTE | 2017-08-30 12:27 | P.PN ---
Subjective Progress Note Date: 08/30/17 This is a pleasant 87-year-old gentleman who is quite hard of hearing , he has history of prior diastolic congestive heart failure, COPD, diabetes, hyperlipidemia, hypertension, hypothyroidism, renal failure, patient came into the hospital to have some outpatient labs drawn and then states that he went out for lunch. Just prior to starting his lunch he received a phone call that he needed to come to the hospital for admission because his potassium level was significantly elevated. Patient overall states he is feeling very well, no chest pain, no difficulty in breathing, no dizziness, no lightheadedness. Chest x-ray on admission revealed a small right pleural effusion. EKG on admission showed a marked sinus bradycardia with a right bundle branch block pattern, left anterior fascicular block, and first-degree AV block. Blood pressure on arrival 201/66, heart rate 38, 99% on room air. Blood pressure this morning 156/70 heart rate in the 40s, 97% on room air. White blood cell count 6.2, hemoglobin 13.1, platelet count 186. Sodium 143, potassium 5.8, it was 6.1 on admission, BUN on admission 62 creatinine 2.5, this morning 58 and 2.3. Troponin 0.023. At the time of my examination this morning, patient feels well, sitting up in the chair, no complaints. 08/30/2017 Patient was seen and examined this morning, continues to have an elevated potassium level of 6.4, BUN 50, creatinine 2.2. Blood pressure 144/60 with a heart rate in the high 30s to low 40s. Patient is asymptomatic, denies any dizziness or lightheadedness. I did have a lengthy discussion again with the patient and the family today. If patient continues to be bradycardic when his potassium normalizes he will require implantation of a permanent pacemaker. If the heart rate improves as the potassium comes down, he will not require pacer at this time. Objective - Vital Signs Vital signs: Vital Signs Temp 97 F L 08/30/17 08:00 Pulse 39 L 08/30/17 08:00 Resp 16 08/30/17 08:00 BP 145/66 08/30/17 08:00 Pulse Ox 97 08/30/17 08:00 Intake & Output 08/29/17 08/30/17 08/30/17 18:59 06:59 18:59 Intake Total 600 200 Balance 600 200 Weight 82 kg Intake: Oral 600 200 Other: Voiding Method Urinal Urinal # Voids 2 0 # Bowel Movements 0 - Exam PHYSICAL EXAMINATION: GENERAL: 87-year-old gentleman in no apparent distress at the time of my examination HEENT: Head is atraumatic, normocephalic. Pupils equal, round. Sclera anicteric. Conjunctiva are clear. Mucous membranes of the mouth are moist. Neck is supple. There is no elevated jugular venous pressure.] bruit is heard. HEART EXAMINATION: Heart S1, S2 normal. No murmur or gallop heard. CHEST EXAMINATION: Lungs are clear to auscultation and precussion. No chest wall tenderness is noted on palpation or with deep breathing. ABDOMEN: Soft, nontender. Bowel sounds are heard. No organomegaly noted. EXTREMITIES: 2+ peripheral pulses with no evidence of peripheral edema and no calf tenderness noted. NEUROLOGIC patient is awake, alert and oriented ?-3. - Labs CBC & Chem 7: 08/29/17 09:41 08/30/17 08:38 Labs: Abnormal Lab Results - Last 24 Hours (Table) 08/29/17 08/29/17 08/30/17 Range/Units 09:41 21:05 08:30 Potassium (3.5-5.1) mmol/L Chloride (98-107) mmol/L BUN (9-20) mg/dL Creatinine (0.66-1.25) mg/dL POC Glucose (mg/dL) 109 H (75-99) mg/dL TSH 0.200 L (0.465-4.680) mIU/L Urine Protein 1+ H (Negative) Urine Blood Trace H (Negative) Urine Mucus Rare H (None) /hpf 08/30/17 Range/Units 08:38 Potassium 6.4 H* (3.5-5.1) mmol/L Chloride 108 H (98-107) mmol/L BUN 50 H (9-20) mg/dL Creatinine 2.24 H (0.66-1.25) mg/dL POC Glucose (mg/dL) (75-99) mg/dL TSH (0.465-4.680) mIU/L Urine Protein (Negative) Urine Blood (Negative) Urine Mucus (None) /hpf Assessment and Plan Plan: Assessment and plan #1 hyperkalemia #2 bradycardia, likely secondary to hyperkalemia #3 hypothyroidism history #4 renal failure #5 hyperlipidemia #6 diabetes #7 COPD #8 hypertension Plan Echocardiogram with Doppler study was performed at revealed an ejection fraction of 50-55%. Potassium level today 6.4. Again a lengthy discussion was made with the patient and the family today. If the potassium level improves and patient continues to be bradycardic he will require implantation of a permanent pacemaker. If however the heart rate improves as the potassium normalizes we will defer from a pacer at this time. DNP note has been reviewed, I agree with a documented findings and plan of care. Patient was seen and examined.
--- NOTE | 2017-08-30 16:36 | PN ---
PROGRESS NOTE The patient is seen for followup for acute kidney injury, hyperkalemia. The patient's potassium was 6.1 initially and then came down to 5.8 yesterday. He did get a dose of Kayexalate and is maintained on a low-potassium diet. Serum potassium this morning was 6.4. The KEVIN inhibitors are on hold. There is no ongoing active GI bleed noted and blood sugars have not been significantly elevated. PHYSICAL EXAMINATION: On examination today, patient is comfortable. He remains bradycardic with heart rate in the 40s, occasionally 39 per minute. Heart rate 140 4/64. Patient is afebrile. Examination of the heart: S1, S2. Examination of the lungs: Bilateral breath sounds are heard. Abdomen is soft, nontender. Examination lower extremities shows no evidence of edema. PATTERN DRUM MAKER exam is grossly intact. LABS: Shows sodium 143, potassium 5.8, chloride 108, BUN 58, serum creatinine 2.37. TSH 0.2, calcium 9.2. UA shows 1+ protein, trace blood. ASSESSMENT: 1. Acute kidney injury associated with bradycardia and hypoperfusion, currently improving. KEVIN inhibitors are on hold. Blood pressure is not significantly low. However, heart rate remains on the lower side. Renal function has improved and it is currently close to baseline. 2. Chronic kidney disease, NKF stage IV, secondary to diabetic nephropathy. Baseline creatinine about 2 in February of 2017. 3. Hyperkalemia associated with chronic kidney disease and acute kidney injury, rule out urine retention. Continue to hold off on KEVIN inhibitors. I will treat with IV insulin and D50. Maintain the patient on low-potassium diet. I will increase the dose of the oral Lasix to 40 mg daily. PLAN: Check bladder scan to rule out urine retention. Increase Lasix to 40 mg daily. Repeat potassium this evening. Continue to maintain patient on low-potassium diet. MMODL / IJN: [id number] /
[2017-08-30 16:37] LABS: Glucose,Whole Blood 72 mg/dL (75-99)
[2017-08-30] MEDS ORDERED: SODIUM POLYSTYRENE SULFONATE 15 GM/60 ML BOTTLE PO STA ×2 (17:41→18:32)
[2017-08-30] MEDS: ATORVASTATIN 20 MG TAB PO SCH (20:30)
[2017-08-30 20:46] LABS: Glucose,Whole Blood 115 mg/dL (75-99)
--- NOTE | 2017-08-31 00:30 | P.PN ---
Subjective Progress Note Date: 08/30/17 Principal diagnosis: Hyperkalemia Patient is a 87-year-old male with a known history of HIV with diastolic dysfunction, COPD, diabetes type 2, hyperlipidemia, hypertension, hypothyroidism , chronic kidney disease presented to the hospital with abdominal lab value with hyperkalemia. Otherwise patient denied any chest pain or shortness of breath no nausea vomiting abdominal pain. Chest x-ray showed small right pleural effusion neck and EKG showed marked sinus bradycardia with right bundle branch block Blood pressure was 201/66 on admission. Heart rate 38 Troponin 0.023 08/30/2017 Currently patient denied any chest pain or shortness of breath. Potassium level is at 6.4 today. Denied any complains of headache or dizziness or light headedness. Nephrology is following. Bradycardia could be secondary to hyperkalemia and if the patient is still having bradycardia after potassium normalizes he will require permanent pacemaker placement. Cardiology is on board. 2-D echocardiography showed normal ejection fraction. 50-55%. All other review of systems negative except the above Current medications reviewed Objective - Vital Signs Vital signs: Vital Signs Temp 97.7 F 08/30/17 12:30 Pulse 43 L 08/30/17 12:30 Resp 16 08/30/17 12:30 BP 144/64 08/30/17 12:30 Pulse Ox 97 08/30/17 12:30 Intake & Output 08/29/17 08/30/17 08/30/17 18:59 06:59 18:59 Intake Total 600 200 Balance 600 200 Weight 82 kg Intake: Oral 600 200 Other: Voiding Method Urinal Urinal # Voids 2 0 # Bowel Movements 0 - Exam PHYSICAL EXAMINATION: Patient is lying in the bed comfortably, no acute distress, awake alert and oriented.. HEENT: Normocephalic. Neck is supple. Pupils reactive. Nostrils clear. Oral cavity is moist. Ears reveal no drainage. Neck reveals no JVD, carotid bruits, or thyromegaly. CHEST EXAMINATION: Trachea is central. Symmetrical expansion. Minimal right basilar crackles Lung more clear to auscultation and percussion. CARDIAC: Normal S1, S2 with no gallops. No murmurs ABDOMEN: Soft. Bowel sounds normal. No organomegaly. No abdominal bruits. Extremities: reveal no edema. No clubbing or cyanosis Neurologically awake, alert, oriented x3 with well-coordinated movements. No focal deficits noted Skin: No rash or skin lesions. Psychiatric: Coperative. Nonsuicidal Musculoskeletal: No joint swelling or deformity. Normal range of motion. - Labs CBC & Chem 7: 08/29/17 09:41 08/30/17 16:02 Labs: Abnormal Lab Results - Last 24 Hours (Table) 08/29/17 08/29/17 08/30/17 Range/Units 09:41 21:05 08:30 Potassium (3.5-5.1) mmol/L Chloride (98-107) mmol/L BUN (9-20) mg/dL Creatinine (0.66-1.25) mg/dL POC Glucose (mg/dL) 109 H (75-99) mg/dL TSH 0.200 L (0.465-4.680) mIU/L Urine Protein 1+ H (Negative) Urine Blood Trace H (Negative) Urine Mucus Rare H (None) /hpf 08/30/17 Range/Units 08:38 Potassium 6.4 H* (3.5-5.1) mmol/L Chloride 108 H (98-107) mmol/L BUN 50 H (9-20) mg/dL Creatinine 2.24 H (0.66-1.25) mg/dL POC Glucose (mg/dL) (75-99) mg/dL TSH (0.465-4.680) mIU/L Urine Protein (Negative) Urine Blood (Negative) Urine Mucus (None) /hpf Assessment and Plan Assessment: Hyperkalemia secondary to acute kidney injury with hypotension and bradycardia Sinus bradycardia Chronic kidney disease stage IV due to diabetic nephropathy. Baseline creatinine 2 Hypothyroidism Hyperlipidemia Diabetes type 2 COPD Hypertension DVT prophylaxis Plan: Patient be continued on telemetry monitoring. Patient was again given Kayexalate and repeat potassium level came back to 5.4. Nephrology and cardiology on board. Continue the current management otherwise and follow closely. Further recommendations based on the clinical course. Time with Patient: Greater than 30
[2017-08-31 05:45] LABS: Glucose,Whole Blood 78 mg/dL (75-99)
[2017-08-31] MEDS: INSULIN ASPART 100 UNIT/ML 1 ML 10 ML VIAL SQ SCH ×2 (05:49→12:29)
[2017-08-31] MEDS: LEVOTHYROXINE 75 MCG TAB PO SCH (06:39)
[2017-08-31 07:22] LABS: Calcium 9.1 mg/dL (8.4-10.2); Potassium 4.9 mmol/L (3.5-5.1)
[2017-08-31] MEDS ORDERED: FUROSEMIDE 40 MG TAB PO SCH (09:00)
[2017-08-31 09:34] VITALS: RESP 18; TEMP 97.1
[2017-08-31] MEDS: ASPIRIN 81 MG PO SCH (09:45)
[2017-08-31] MEDS: HEPARIN SODIUM,PORCINE 5,000 UNIT/ML 1 ML VIAL SQ SCH ×2 (09:45→16:20)
[2017-08-31 11:24] LABS: Glucose,Whole Blood 99 mg/dL (75-99)
--- NOTE | 2017-08-31 12:40 | PN ---
PROGRESS NOTE Patient is patient is seen for followup for acute kidney injury on top of chronic kidney disease. Baseline creatinine is about 2.0 mg/dL. Serum creatinine was at 2.5 on initial admission, it is down to 2.3. Patient was severely hyperkalemic at the time of admission with potassium as high as 6.4 yesterday. His creatinine is now down to 4.9. Patient was on KEVIN inhibitors, which are now on hold. He was also bradycardic, which seems to be slightly improved now with treatment of hyperkalemia. Patient has had good urine output. He is currently not on any IV fluids. I increased his Lasix to 40 mg daily to help with the hyperkalemia from 20 mg daily. PHYSICAL EXAMINATION: Blood pressure is 139/67, heart rate 56 per minute. He is afebrile. Examination of the heart S1, S2. Examination of the lungs, bilateral breath sounds are heard. Abdomen is soft, nontender. Examination of the lower extremities shows no evidence of edema. BALLISTICS EXPERT FORENSIC exam is grossly intact. Patient is moving all 4 extremities. LABS: Show sodium 138, potassium 4.9, BUN 47, serum creatinine 2.3. ASSESSMENT: 1. Acute kidney injury, prerenal on top of chronic kidney disease, currently improved. 2. Chronic kidney disease NKF stage IV secondary to diabetic nephropathy. Baseline creatinine around 2 as of February of 2017. 3. Hyperkalemia associated with chronic kidney disease and acute kidney injury and use of KEVIN inhibitors, currently improved. Continue with low-potassium diet. Continue increased dose of oral Lasix. No evidence of urine retention. 4. Bradycardia at the time of admission, currently improved with treatment of hyperkalemia. 5. Chronic obstructive pulmonary disease. 6. History of hypothyroidism. TSH was not high at this admission, it was at 0.7. PLAN: Continue increased dose of Lasix. Continue low-potassium diet and continue to hold off on KEVIN inhibitors. Patient may need to be maintained on low-dose Kayexalate as outpatient. He should have labs done again in about 2-3 days' time with plans for follow up as outpatient in one week's time. MMODL / IJN: [id number] /
[2017-08-31] MEDS ORDERED: ALLOPURINOL 100 MG TAB PO SCH (12:45)
[2017-08-31] MEDS ORDERED: CHOLECALCIFEROL 1,000 UNIT TAB PO SCH (12:45)
[2017-08-31 13:44] VITALS: BP 146/74; PULSE 76
--- NOTE | 2017-08-31 14:30 | P.PN ---
Subjective Progress Note Date: 08/31/17 This is a pleasant 87-year-old gentleman who is quite hard of hearing , he has history of prior diastolic congestive heart failure, COPD, diabetes, hyperlipidemia, hypertension, hypothyroidism, renal failure, patient came into the hospital to have some outpatient labs drawn and then states that he went out for lunch. Just prior to starting his lunch he received a phone call that he needed to come to the hospital for admission because his potassium level was significantly elevated. Patient overall states he is feeling very well, no chest pain, no difficulty in breathing, no dizziness, no lightheadedness. Chest x-ray on admission revealed a small right pleural effusion. EKG on admission showed a marked sinus bradycardia with a right bundle branch block pattern, left anterior fascicular block, and first-degree AV block. Blood pressure on arrival 201/66, heart rate 38, 99% on room air. Laboratory values this morning showed a potassium of 4.9 with a BUN of 47 and creatinine of 2.3. His heart rate has improved however was in the 40s this morning. According to a visitor, patient wears a CPAP at home and has not been wearing it here which could could contribute to bradycardia. Heart rate is currently in the 70s. Objective - Vital Signs Vital signs: Vital Signs Temp 97.1 F L 08/31/17 08:00 Pulse 56 L 08/31/17 08:00 Resp 18 08/31/17 08:00 BP 139/67 08/31/17 08:00 Pulse Ox 98 08/31/17 08:00 Intake & Output 08/30/17 08/31/17 08/31/17 18:59 06:59 18:59 Intake Total 298 150 Output Total 400 Balance -102 150 Weight 82.7 kg Intake: Oral 298 150 Output: Urine 200 Stool 200 Other: Voiding Method Urinal Urinal Urinal # Voids 2 - Exam GENERAL: 87-year-old gentleman in no apparent distress at the time of my examination HEENT: Head is atraumatic, normocephalic. Pupils equal, round. Sclera anicteric. Conjunctiva are clear. Mucous membranes of the mouth are moist. Neck is supple. There is no elevated jugular venous pressure. HEART EXAMINATION: Heart S1, S2 normal. No murmur or gallop heard. CHEST EXAMINATION: Lungs are clear to auscultation and precussion. No chest wall tenderness is noted on palpation or with deep breathing. ABDOMEN: Soft, nontender. Bowel sounds are heard. No organomegaly noted. EXTREMITIES: 2+ peripheral pulses with no evidence of peripheral edema and no calf tenderness noted. NEUROLOGIC patient is awake, alert and oriented x3. - Labs CBC & Chem 7: 08/29/17 09:41 08/31/17 06:51 Labs: Abnormal Lab Results - Last 24 Hours (Table) 08/30/17 08/30/17 08/30/17 Range/Units 16:02 16:34 20:44 Potassium 5.4 H (3.5-5.1) mmol/L BUN (9-20) mg/dL Creatinine (0.66-1.25) mg/dL POC Glucose (mg/dL) 72 L 115 H (75-99) mg/dL 08/31/17 Range/Units 06:51 Potassium (3.5-5.1) mmol/L BUN 47 H (9-20) mg/dL Creatinine 2.30 H (0.66-1.25) mg/dL POC Glucose (mg/dL) (75-99) mg/dL Assessment and Plan Assessment: #1 hyperkalemia #2 bradycardia, likely secondary to hyperkalemia #3 history of hypothyroidism #4 renal failure #5 hyperlipidemia #6 hypertension #7 sleep apnea, uses CPAP at home Plan: From cardiology perspective, medications were reviewed and will continue the same. from our standpoint, patient may be discharged home today. we recommend 24 -hour Holter monitor and follow-up as an outpatient. GAUGE AND WEIGH MACHINE OPERATOR note has been reviewed, I agree with a documented findings and plan of care. Patient was seen and examined.
[2017-08-31 17:03] LABS: Glucose,Whole Blood 103 mg/dL (75-99)
--- NOTE | 2017-08-31 23:32 | P.DS ---
Providers Date of admission: 08/28/17 18:57 Expected date of discharge: 08/31/17 Attending physician: Adam Ruelas Consults: 08/28/17 19:21 Consult Physician Routine Consulting Provider: Christel Chun Consult Reason/Comments: ckd, hyperkalemia Do you want consulting provider notified?: Yes, Notify in am 08/28/17 19:23 Consult Physician Routine Consulting Provider: Hector Booker Consult Reason/Comments: bradycradia Do you want consulting provider notified?: Yes, Notify in am Primary care physician: Adam Ruelas Hospital Course: Discharge diagnosis Hyperkalemia secondary to acute kidney injury with hypotension and bradycardia Sinus bradycardia. Improved after correcting hyperkalemia. 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 Baseline creatinine 2 Hypothyroidism Hyperlipidemia Diabetes type 2 COPD Hypertension DVT prophylaxis Hospital course Patient is a 87-year-old male with a known history of HIV with diastolic dysfunction, COPD, diabetes type 2, hyperlipidemia, hypertension, hypothyroidism , chronic kidney disease presented to the hospital with abdominal lab value with hyperkalemia. Otherwise patient denied any chest pain or shortness of breath no nausea vomiting abdominal pain. Chest x-ray showed small right pleural effusion neck and EKG showed marked sinus bradycardia with right bundle branch block Blood pressure was 201/66 on admission. Heart rate 38 Troponin 0.023 08/30/2017 Currently patient denied any chest pain or shortness of breath. Potassium level is at 6.4 today. Denied any complains of headache or dizziness or light headedness. Nephrology is following. Bradycardia could be secondary to hyperkalemia and if the patient is still having bradycardia after potassium normalizes he will require permanent pacemaker placement. Cardiology is on board. 2-D echocardiography showed normal ejection fraction. 50-55%. 08/31/2017 Hyperkalemia resolved. Heart rate is better controlled in 50s now. Patient is asymptomatic otherwise. We'll continue to hold lisinopril as an outpatient and increase dose of Lasix to 40 mg daily. Patient is cleared from nephrology and cardiology. Discussed with his daughter at bedside. Stable to be discharged home. Follow-up with nephrology in a week due to underlying chronic kidney disease.. Discharge physical examination was done and vitals reviewed Vital Signs - 24 hr 08/31/17 08/31/17 08/31/17 00:00 04:00 08:00 Temperature 97.1 F L Pulse Rate [ 49 L 58 L 56 L Community Engagement Manager ] Respiratory 16 16 18 Rate Blood Pressure 148/72 126/72 139/67 [Left Arm Sitting] O2 Sat by Pulse 97 96 98 Oximetry 08/31/17 12:00 Temperature Pulse Rate [ 76 Community Engagement Manager ] Respiratory 18 Rate Blood Pressure 146/74 [Left Arm Sitting] O2 Sat by Pulse 98 Oximetry Patient Condition at Discharge: Stable Plan - Discharge Summary New Discharge Prescriptions: New Furosemide [Lasix] 40 mg PO DAILY #30 tab Continue Levothyroxine Sodium 150 mcg PO DAILY Allopurinol 100 mg PO DAILY Atorvastatin [Lipitor] 20 mg PO HS Cholecalciferol (Vitamin D3) [Vitamin D3] 2,000 unit PO DAILY Aspirin [Adult Low Dose Aspirin EC] 81 mg PO DAILY Discontinued Benazepril HCl [Lotensin] 40 mg PO DAILY Furosemide [Lasix] 20 mg PO DAILY Discharge Medication List Allopurinol 100 mg PO DAILY 10/20/13 [History] Levothyroxine Sodium 150 mcg PO DAILY 10/20/13 [History] Atorvastatin [Lipitor] 20 mg PO HS 01/05/17 [History] Aspirin [Adult Low Dose Aspirin EC] 81 mg PO DAILY 08/28/17 [History] Cholecalciferol (Vitamin D3) [Vitamin D3] 2,000 unit PO DAILY 08/28/17 [History] Furosemide [Lasix] 40 mg PO DAILY #30 tab 08/31/17 [Rx] Follow up Appointment(s)/Referral(s): Adam Ruelas MD [Primary Care Provider] - 09/05/17 1:50 pm (Sunday) Christel Chun MD [STAFF PHYSICIAN] - 09/11/17 2:30 pm Patient Instructions/Handouts: Hyperkalemia (DC), Bradycardia (DC) Discharge Disposition: HOME SELF-CARE
== END 2017-08-31 17:58 | disposition home or self-care (01) | DRG 683 ==
LOC: EC 16:09 → 6SEL 18:57
PROVIDERS: ADMIT Family Medicine; ATTEND Family Medicine
DX: N17.9 Acute kidney failure, unspecified (principal); I50.32 Chronic diastolic (congestive) heart failure; E87.2 Acidosis; I13.0 Hypertensive heart and chronic kidney disease with heart failure and stage 1 through stage 4 chronic kidney disease, or unspecified chronic kidney disease; J44.9 Chronic obstructive pulmonary disease, unspecified; N18.4 Chronic kidney disease, stage 4 (severe); I44.0 Atrioventricular block, first degree; I45.10 Unspecified right bundle-branch block; E03.9 Hypothyroidism, unspecified; E11.22 Type 2 diabetes mellitus with diabetic chronic kidney disease; E11.65 Type 2 diabetes mellitus with hyperglycemia; E78.5 Hyperlipidemia, unspecified; E87.5 Hyperkalemia; G47.30 Sleep apnea, unspecified; H91.90 Unspecified hearing loss, unspecified ear; I25.10 Atherosclerotic heart disease of native coronary artery without angina pectoris; F32.9 Major depressive disorder, single episode, unspecified; I71.4 Abdominal aortic aneurysm, without rupture; R00.1 Bradycardia, unspecified; I44.4 Left anterior fascicular block; R33.9 Retention of urine, unspecified; Z79.82 Long term (current) use of aspirin; Z79.899 Other long term (current) drug therapy; Z87.891 Personal history of nicotine dependence; Z87.01 Personal history of pneumonia (recurrent); Z83.3 Family history of diabetes mellitus
CPT/HCPCS: 36415; 71045; 80048; 80053; 81001; 82550; 82553; 83036; 84132; 84443; 84484; 85025; 85610; 93005; 93306; 94640; 96365; 96375; 99285

== ENCOUNTER → 2017-08-28 | Outpatient (CLI) | payer MEDICARE ==
[2017-08-28 15:27] LABS: HCT 40.8 % (39.0-53.0); HGB 13.2 gm/dL (13.0-17.5); MCH 32.3 pg (25.0-35.0); MCHC 32.4 g/dL (31.0-37.0); MCV 99.7 fL (80.0-100.0); Mean Platelet Volume 7.2; Platelet Count 209 k/uL (150-450); RBC 4.09 m/uL (4.30-5.90); RDW 13.7 % (11.5-15.5); WBC 7.3 k/uL (3.8-10.6)
[2017-08-28 15:28] LABS: Appearance,Urine Clear (Clear); Bilirubin,Urine Negative (Negative); Blood,Urine Negative (Negative); Color,Urine Light Yellow; Glucose,Urine (UA) Negative (Negative); Ketones,Urine Negative (Negative); Leukocyte Esterase,Urine Negative (Negative); Mucus,Urine Rare /hpf; Nitrite,Urine Negative (Negative); Protein,Urine 1+ (Negative); RBC,Urine <1 /hpf (0-5); Specific Gravity,Urine 1.007 (1.001-1.035); Urobilinogen,Urine <2.0 mg/dL (<2.0); WBC,Urine 1 /hpf (0-5)
[2017-08-28 15:40] LABS: Albumin 4.2 g/dL (3.5-5.0); Calcium 8.9 mg/dL (8.4-10.2); Magnesium 2.3 mg/dL (1.6-2.3); Phosphorus 4.3 mg/dL (2.5-4.5); Uric Acid 5.1 mg/dL (3.5-8.5)
[2017-08-28 15:47] LABS: Potassium 6.4 mmol/L (3.5-5.1)
[2017-08-28 19:18] LABS: Iron Saturation 34.38 (15.00-50.00)
[2017-08-29 01:17] LABS: Parathyroid Hormone Intact 123.5 pg/mL (14.0-72.0)
== END | disposition home or self-care (01) ==
LOC: LABWHC1 14:50
PROVIDERS: ATTEND Nurse Practitioner Family
DX: E11.22 Type 2 diabetes mellitus with diabetic chronic kidney disease (principal); N18.3 Chronic kidney disease, stage 3 (moderate); D63.1 Anemia in chronic kidney disease; E11.21 Type 2 diabetes mellitus with diabetic nephropathy; E21.3 Hyperparathyroidism, unspecified; N39.0 Urinary tract infection, site not specified; E55.9 Vitamin D deficiency, unspecified; R80.9 Proteinuria, unspecified
CPT/HCPCS: 36415; 80048; 81001; 82040; 82043; 82570; 82728; 83540; 83550; 83735; 83970; 84100; 84550; 85027

== ENCOUNTER → 2017-09-25 | Outpatient (CLI) | payer MEDICARE ==
[2017-09-25 16:53] LABS: Potassium 5.1 mmol/L (3.5-5.1)
== END | disposition home or self-care (01) ==
LOC: LABWHC1 15:46
PROVIDERS: ATTEND Nurse Practitioner Family
DX: N18.3 Chronic kidney disease, stage 3 (moderate) (principal)
CPT/HCPCS: 36415; 80048

== ENCOUNTER → 2017-10-30 | Outpatient (CLI) | payer MEDICARE ==
[2017-10-30 14:46] LABS: Basophils # (A) 0.1 k/uL (0-0.2); Basophils % (A) 1 %; Eosinophils # (A) 0.2 k/uL (0-0.7); Eosinophils % (A) 3 %; HCT 45.4 % (39.0-53.0); HGB 14.2 gm/dL (13.0-17.5); Hypochromasia Slight; Lymphocytes # (A) 1.4 k/uL (1.0-4.8); Lymphocytes % (A) 19 %; MCH 31.8 pg (25.0-35.0); MCHC 31.4 g/dL (31.0-37.0); MCV 101.5 fL (80.0-100.0); Macrocytosis Slight; Mean Platelet Volume 6.9; Monocytes # (A) 0.4 k/uL (0-1.0); Monocytes % (A) 6 %; Neutrophils # (A) 4.8 k/uL (1.3-7.7); Neutrophils % (A) 69 %; Platelet Count 211 k/uL (150-450); RBC 4.47 m/uL (4.30-5.90); RDW 13.4 % (11.5-15.5)
[2017-10-30 14:47] LABS: Appearance,Urine Clear (Clear); Bilirubin,Urine Negative (Negative); Blood,Urine Trace (Negative); Color,Urine Light Yellow; Glucose,Urine (UA) Negative (Negative); Hyaline Casts,Urine 1 /lpf (0-2); Ketones,Urine Negative (Negative); Leukocyte Esterase,Urine Small (Negative); Mucus,Urine Rare /hpf; Nitrite,Urine Negative (Negative); PH, Urine 5.5 (5.0-8.0); Protein,Urine 2+ (Negative); RBC,Urine <1 /hpf (0-5); Specific Gravity,Urine 1.008 (1.001-1.035); Urobilinogen,Urine <2.0 mg/dL (<2.0); WBC,Urine 2 /hpf (0-5)
[2017-10-30 15:00] LABS: Calcium 8.9 mg/dL (8.4-10.2); Magnesium 2.2 mg/dL (1.6-2.3); Phosphorus 4.2 mg/dL (2.5-4.5); Potassium 5.1 mmol/L (3.5-5.1); Uric Acid 5.9 mg/dL (3.5-8.5)
[2017-10-30 18:52] LABS: Iron Saturation 30.47 (15.00-50.00)
[2017-10-30 20:42] LABS: Parathyroid Hormone Intact 87.8 pg/mL (14.0-72.0)
== END | disposition home or self-care (01) ==
LOC: LABWHC1 14:06
PROVIDERS: ATTEND Internal Medicine Nephrology
DX: N18.3 Chronic kidney disease, stage 3 (moderate) (principal); D63.1 Anemia in chronic kidney disease; E55.9 Vitamin D deficiency, unspecified; E21.3 Hyperparathyroidism, unspecified; M10.9 Gout, unspecified; N39.0 Urinary tract infection, site not specified
CPT/HCPCS: 36415; 80048; 81001; 82728; 83540; 83550; 83735; 83970; 84100; 84550; 85025

== ENCOUNTER 2017-12-01 10:56 | Emergency (ER) | payer MEDICARE ==
[2017-12-01 11:06] VITALS: BP 139/77; PULSE 87; RESP 18; TEMP 98.3
--- NOTE | 2017-12-01 11:27 | ED ---
General Adult HPI - General Chief complaint: Animal Bite Stated complaint: Cat bite Time Seen by Provider: 12/01/17 11:10 Source: patient, RN notes reviewed, old records reviewed Mode of arrival: ambulatory Limitations: no limitations - History of Present Illness Initial comments: 87 yo male history of diabetes presents for evaluation of Bite to the right great toe. Patient states this occurred approximately 3 days prior to arrival. He's had some pain and swelling in his Toprol and believes it is infected. It is tender to the touch. He denies fever or chills. Denies any nausea vomiting or decreased appetite. He is otherwise feeling well. - Related Data Home Medications Medication Instructions Recorded Confirmed Allopurinol 100 mg PO DAILY 10/20/13 08/28/17 Levothyroxine Sodium 150 mcg PO DAILY 10/20/13 08/28/17 Atorvastatin [Lipitor] 20 mg PO HS 01/05/17 08/28/17 Aspirin [Adult Low Dose Aspirin EC] 81 mg PO DAILY 08/28/17 08/28/17 Cholecalciferol (Vitamin D3) 2,000 unit PO DAILY 08/28/17 08/28/17 [Vitamin D3] Previous Rx's Medication Instructions Recorded Furosemide [Lasix] 40 mg PO DAILY #30 tab 08/31/17 Amoxic-Pot Clav 875-125Mg 1 tab PO Q12HR #20 tablet 12/01/17 [Augmentin 875-125] Allergies Allergy/AdvReac Type Severity Reaction Status Date / Time No Known Allergies Allergy Verified 12/01/17 11:05 Review of Systems ROS Statement: Those systems with pertinent positive or pertinent negative responses have been documented in the HPI. ROS Other: All systems not noted in ROS Statement are negative. 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 History of Any Multi-Drug Resistant Organisms: None Reported Additional Past Surgical History / Comment(s): Lasik 2009, Recent Leg surgery in August 2013 "Laser for vericose veins" Past Anesthesia/Blood Transfusion Reactions: No Reported Reaction Past Psychological History: Depression Smoking Status: Former smoker Past Alcohol Use History: Occasional Past Drug Use History: None Reported - Past Family History Mother Family Medical History: Diabetes Mellitus Sister(s) Family Medical History: Diabetes Mellitus General Exam Limitations: no limitations General appearance: alert, in no apparent distress Head exam: Present: atraumatic, normocephalic Eye exam: Present: normal appearance, PERRL ENT exam: Present: normal exam Neck exam: Present: normal inspection Respiratory exam: Present: normal lung sounds bilaterally. Absent: respiratory distress, wheezes Cardiovascular Exam: Present: regular rate, normal rhythm GI/Abdominal exam: Present: soft. Absent: distended, tenderness Extremities exam: Present: other (Right lower extremity exam, there is erythema and swelling of the right great toe, there is 4 puncture workman on the distal phalanx. There is no drainable abscess. There is normal range of motion of the toe, no streaking erythema up the foot, erythema is localized just to the right great toe.) Course Vital Signs 12/01/17 11:03 Temperature 98.3 F Pulse Rate 87 Respiratory 18 Rate Blood Pressure 139/77 O2 Sat by Pulse 97 Oximetry Medical Decision Making - Medical Decision Making 87-year-old male presenting with Bite to the right great toe. There is signs of local infection. No signs of systemic infection, normal vital signs, a febrile, no history of fever and chills. There is no streaking erythema in the leg or proximal foot. Patient is a diabetic, he states his sugars are well- controlled. He will be given a trial of oral antibiotics, he is instructed with his daughter present to monitor for fever, return with any worsening or changing swelling or erythema or the development of fever. Disposition Clinical Impression: Cat bite, Cellulitis Disposition: HOME SELF-CARE Condition: Good Instructions: Animal Bite (ED), Cellulitis (ED) Prescriptions: Amoxic-Pot Clav 875-125Mg [Augmentin 875-125] 1 tab PO Q12HR #20 tablet Is patient prescribed a controlled substance at d/c from ED?: No Referrals: Adam Reulas MD [Primary Care Provider] - 1-2 days Time of Disposition: 11:35
== END 2017-12-01 11:50 | disposition home or self-care (01) ==
LOC: EC 10:56
DX: S91.151A Open bite of right great toe without damage to nail, initial encounter (principal); L03.031 Cellulitis of right toe; I11.0 Hypertensive heart disease with heart failure; I50.9 Heart failure, unspecified; E78.5 Hyperlipidemia, unspecified; I10 Essential (primary) hypertension; E07.9 Disorder of thyroid, unspecified; Z87.891 Personal history of nicotine dependence; Z79.82 Long term (current) use of aspirin; Z79.899 Other long term (current) drug therapy; W55.01XA Bitten by cat, initial encounter
CPT/HCPCS: 99283

== ENCOUNTER 2017-12-13 10:34 | Inpatient (IN) | payer MEDICARE ==
[2017-12-13] MEDS ORDERED: SODIUM CHLORIDE 0.9% 1,000 ML IV STA ×2 (11:06)
[2017-12-13] MEDS ORDERED: PIPERACILLIN-TAZOBACTAM 3.375 GM in DEXTROSE/WATER 1 50ML.BAG IVPB STA (11:09)
[2017-12-13] MEDS ORDERED: VANCOMYCIN IV PER PHARMACY 1 EACH MISC MISCELLANE PRN (11:09)
[2017-12-13] MEDS ORDERED: VANCOMYCIN 1,500 MG in SODIUM CHLORIDE 0.9% 250 ML IVPB STA (11:13)
--- NOTE | 2017-12-13 11:19 | ED ---
General Adult HPI - General Source: patient Mode of arrival: ambulatory Limitations: no limitations <Salvador Contreras - Last Filed: 12/13/17 11:02> <Jose Alcantar - Last Filed: 12/13/17 13:03> - General Chief complaint: Animal Bite Stated complaint: recheck - History of Present Illness Initial comments: 87-year-old male patient presents in ED for pain in right great toe. Patient is initially presented to ED on 12/01 for cat bite on right great toe. On patient was prescribed Augmentin and discharged home. Patient completed Augmentin antibiotic therapy today. Patient is still experiencing pain in right great toe, and worsening erythema and ulceration. Patient denies fever chills, nausea vomiting diarrhea, weakness. Systemic: Pt denies fatigue, myalgia, fever/chills, rash. Pt denies weakness, night sweats, weight loss. Neuro: Pt denies headache, visual disturbances, syncope or pre-syncope. HEENT: Pt denies ocular discharge or irritation, otalgia, rhinorrhea, pharyngitis or notable lymphadenopathy. Cardiopulmonary: Pt denies chest pain, SOB, heart palpitations, dyspnea on exertion. Abdominal/GI: Pt denies abdominal pain, n/v/d. : Pt denies dysuria, burning w/ urination, frequency/urgency. Denies new onset urinary or bowel incontinence. MSK: Pt denies myalgia, loss of strength or function in extremities. (Salvador Contreras) - Related Data Home Medications Medication Instructions Recorded Confirmed Allopurinol 100 mg PO DAILY 10/20/13 12/13/17 Levothyroxine Sodium 150 mcg PO DAILY 10/20/13 12/13/17 Atorvastatin [Lipitor] 20 mg PO HS 01/05/17 12/13/17 Aspirin [Adult Low Dose Aspirin EC] 81 mg PO DAILY 08/28/17 12/13/17 Cholecalciferol (Vitamin D3) 2,000 unit PO DAILY 08/28/17 12/13/17 [Vitamin D3] Previous Rx's Medication Instructions Recorded Furosemide [Lasix] 40 mg PO DAILY #30 tab 08/31/17 Allergies Allergy/AdvReac Type Severity Reaction Status Date / Time No Known Allergies Allergy Verified 12/13/17 11:03 Review of Systems ROS Other: All systems not noted in ROS Statement are negative. <Salvador Contreras - Last Filed: 12/13/17 11:02> ROS Other: All systems not noted in ROS Statement are negative. <Jose Alcantar - Last Filed: 12/13/17 13:03> ROS Statement: Those systems with pertinent positive or pertinent negative responses have been documented in the HPI. Past Medical History Past Medical History: Heart Failure, COPD, Diabetes Mellitus, Hearing Disorder / Deafness, Hyperlipidemia, Hypertension, Pneumonia, Thyroid Disorder Additional Past Medical History / Comment(s): AAA, bells palsy [place]key History of Any Multi-Drug Resistant Organisms: None Reported Additional Past Surgical History / Comment(s): Lasik 2009, Recent Leg surgery in August 2013 "Laser for vericose veins" Past Anesthesia/Blood Transfusion Reactions: No Reported Reaction Past Psychological History: Depression Smoking Status: Former smoker Past Alcohol Use History: Occasional Past Drug Use History: None Reported - Past Family History Mother Family Medical History: Diabetes Mellitus Sister(s) Family Medical History: Diabetes Mellitus <SandraSalvador wilder - Last Filed: 12/13/17 11:02> General Exam Limitations: no limitations <SandrameñoSalvador J - Last Filed: 12/13/17 11:02> <OrtizJose - Last Filed: 12/13/17 13:03> - General Exam Comments Initial Comments: Constitutional: NAD, AOX3, Pt has pleasant affect. HEENT: NC/AT, trachea midline, neck supple, no lymphadenopathy. Posterior pharynx non erythematous, without exudates. External ears appear normal, without discharge. Mucous membranes moist. Eyes PERRLA, EOM intact. There is no scleral icterus. No pallor noted. Cardiopulmonary: RRR, no murmurs, rubs or gallops, no JVD noted. Lungs CTAB in anterior and posterior more. No peripheral edema. Abdominal exam: Abdomen soft and non-distended. Abdomen non-tender to palpation in all 4 quadrants. Bowel sounds active in LLQ. No hepatosplenomegaly. Neuro: CN II-XII grossly intact. MSK: Erythema and 1 x 1 cm ulceration noted the plantar aspect of right great toe. No drainage noted. Additionally erythema surrounding right great toenail , no drainage noted. 0.5 0.5 cm erythema noted on the lateral aspect of mid and right lower extremity, no drainage noted. Left lower extremity examined without any abnormal findings. (Salvador Contreras) Vital Signs 12/13/17 10:40 Temperature 98.2 F Pulse Rate 60 Respiratory 16 Rate Blood Pressure 150/81 O2 Sat by Pulse 100 Oximetry Medical Decision Making <Salvador Contreras - Last Filed: 12/13/17 11:02> - Lab Data Result diagrams: 12/13/17 11:21 12/13/17 11:21 <Jose Alcantar - Last Filed: 12/13/17 13:03> - Medical Decision Making Patient evaluated for cat bite on the right great toe that has now failed outpatient antibiotic treatment/progress to diabetic foot infection. Patient is currently clinically stable. Initiated antibiotic regimen of Zosyn and vancomycin. CBC does not display leukocytosis, chemistries displays previously known renal disease that is at baseline. Cultures pending. Plain films of right tibia/fibula and foot do not display signs of osteomyelitis. Patient to be admitted. (Salvador Contreras) Patient was reevaluated by myself, Dr. Alcantar. Patient does have diffuse swelling and erythema of the great toe. There is a plantar ulcer approximately 1 cm. In addition there is some mild erythema right lower lateral leg. Patient has been on outpatient antibiotics without improvement. Case was discussed in detail with Dr. hanley, who will admit for hospital call. Patient states he has no primary care physician at this time. Patient previously has seen Dr. Ruelas however no longer wishes to have him as a physician. (Jose Alcantar) - Lab Data Lab Results 12/13/17 12/13/17 12/13/17 Range/Units 11:21 11:21 11:21 WBC 8.4 (3.8-10.6) k/uL RBC 4.69 (4.30-5.90) m/uL Hgb 14.7 (13.0-17.5) gm/dL Hct 46.8 (39.0-53.0) % MCV 99.8 (80.0-100.0) fL MCH 31.4 (25.0-35.0) pg MCHC 31.4 (31.0-37.0) g/dL RDW 13.5 (11.5-15.5) % Plt Count 250 (150-450) k/uL Neutrophils % 76 % Lymphocytes % 16 % Monocytes % 4 % Eosinophils % 2 % Basophils % 1 % Neutrophils # 6.4 (1.3-7.7) k/uL Lymphocytes # 1.3 (1.0-4.8) k/uL Monocytes # 0.4 (0-1.0) k/uL Eosinophils # 0.2 (0-0.7) k/uL Basophils # 0.1 (0-0.2) k/uL Sodium 140 (137-145) mmol/L Potassium 4.8 (3.5-5.1) mmol/L Chloride 103 (98-107) mmol/L Carbon Dioxide 32 H (22-30) mmol/L Anion Gap 5 mmol/L BUN 36 H (9-20) mg/dL Creatinine 2.11 H (0.66-1.25) mg/dL Est GFR (CKD-EPI)AfAm 31 (>60 ml/min/1.73 sqM) Est GFR (CKD-EPI)NonAf 27 (>60 ml/min/1.73 sqM) Glucose 128 H (74-99) mg/dL Plasma Lactic Acid Peter 1.3 (0.7-2.0) mmol/L Calcium 9.3 (8.4-10.2) mg/dL Disposition Is patient prescribed a controlled substance at d/c from ED?: No Decision Date: 12/13/17 Decision Time: 12:55 <Salvador Contreras - Last Filed: 12/13/17 11:02> <Jose Alcantar - Last Filed: 12/13/17 13:03> Clinical Impression: Dog bite, Bite by animal, Diabetic foot infection, Failure of outpatient treatment Disposition: ADMITTED IP TO THIS HOSP Condition: Good Instructions: Animal Bite (ED) Referrals: None,Stated [Primary Care Provider] - 1-2 days
[2017-12-13 11:46] LABS: Basophils # (A) 0.1 k/uL (0-0.2); Basophils % (A) 1 %; Eosinophils # (A) 0.2 k/uL (0-0.7); Eosinophils % (A) 2 %; HCT 46.8 % (39.0-53.0); HGB 14.7 gm/dL (13.0-17.5); Lymphocytes # (A) 1.3 k/uL (1.0-4.8); Lymphocytes % (A) 16 %; MCH 31.4 pg (25.0-35.0); MCHC 31.4 g/dL (31.0-37.0); MCV 99.8 fL (80.0-100.0); Mean Platelet Volume 6.8; Monocytes # (A) 0.4 k/uL (0-1.0); Monocytes % (A) 4 %; Neutrophils # (A) 6.4 k/uL (1.3-7.7); Neutrophils % (A) 76 %; Platelet Count 250 k/uL (150-450); RBC 4.69 m/uL (4.30-5.90); RDW 13.5 % (11.5-15.5); WBC 8.4 k/uL (3.8-10.6)
[2017-12-13 11:56] LABS: Calcium 9.3 mg/dL (8.4-10.2); Potassium 4.8 mmol/L (3.5-5.1)
--- NOTE | 2017-12-13 12:18 | XR ---
EXAMINATION TYPE: XR tibia fibula RT DATE OF EXAM: 12/13/2017 CLINICAL HISTORY: Right lower extremity pain after injury. TECHNIQUE: Two views of the right leg are obtained. COMPARISON: None. FINDINGS: There is no acute fracture or dislocation seen in the right tibia or fibula. Mild to moder ate tricompartmental arthropathy is seen within the right knee demonstrated as medial joint space vasu rowing, subchondral cystic change, and small marginal osteophytes. Incidentally noted fabella. Small vessel atherosclerosis is seen at the ankle joint. Small plantar enthesophyte is present. Degenerativ e changes of the hindfoot are seen at the dorsal talonavicular joint. No radiopaque foreign body or s ubcutaneous emphysema. The overlying soft tissue appears unremarkable. IMPRESSION: There is no acute fracture or dislocation seen in the right tibia or fibula. No radiopaq ue foreign body. No subcutaneous emphysema.
--- NOTE | 2017-12-13 12:20 | XR ---
EXAMINATION TYPE: XR foot complete RT DATE OF EXAM: 12/13/2017 CLINICAL HISTORY: Right foot pain after injury. TECHNIQUE: Frontal, lateral, and oblique images of the right foot are obtained. COMPARISON: None FINDINGS: At the plantar surface of the great toe at its distal aspect there are 2 punctate radiopaq ue densities measuring 1 mm and 3 mm. There is no acute fracture/dislocation evident in the right rupal t. The joint spaces in the right foot appear within normal limits. Small plantar enthesophyte is in cidentally seen. The overlying soft tissue appears unremarkable. IMPRESSION: There is no acute fracture or dislocation in the right foot. Right great toe plantar tomasz face superficial foreign bodies measuring 1 mm and 3 mm.
[2017-12-13] MEDS ORDERED: NALOXONE 0.4 MG/ML 1 ML VIAL IV PRN (12:58)
--- NOTE | 2017-12-13 15:35 | CDI ---
Last Revision, January 2017 Documentation Clarification Form Date: 12/13/2017 3:27:27 PM From: Miladis DrakeSANTOSH, CCDS Admit Date: 12/13/2017 12:36:00 PM Patient Name: Zay Clifford Visit Number: [id number] Discharge Date: ATTENTION: The Clinical Documentation Specialists (CDI) and [facility] Coding Staff appreciate your assistance in clarifying documentation. Please respond to the clarification below the line at the bottom and electronically sign. The CDI & [facility] Coding staff will review the response and follow-up if needed. Please note: Queries are made part of the Legal Health Record. If you have any questions, please contact the author of this message via ITS. Jose Godoy , DO: Per the 12/13 ER note, the patient was admitted after returning to the ER for a re-check of a "cat bite", initially seen on 12/01/17. Per the ER diagnosis/impression, the patient was bitten by a dog. Patient history/risk factors: DM, Htn, CHF Clinical Indicators: Presented with worsening erythema & ulceration to right great toe. Radiology findings: Rt foot: Right great toe plantar surface superficial foreign bodies. Treatment: IV fluid bolus, IV fluid rate 100, IV Zosyn & IV Vanco. In your professional opinion, can you please clarify in your documentation if the patient was initially bitten by a cat or by a dog? Cat bite, right great toe Dog bite, right great toe MTDD
[2017-12-13] MEDS ORDERED: ACETAMINOPHEN TAB 325 MG TAB PO PRN (16:01)
[2017-12-13] MEDS ORDERED: HYDROcodone/APAP 5-325MG 1 EACH TAB PO PRN (16:01)
--- NOTE | 2017-12-13 16:34 | P.HPIM ---
History of Present Illness H&P Date: 12/13/17 Chief Complaint: Right toe pain 87-year-old male with past medical history hypertension, diabetes mellitus, hypothyroidism, COPD, hyperlipidemia presents the ED for right toe pain and swelling. The [id number], who is also the power of regulatory attorney provides majority of the history as patient is hard of hearing. Daughter reports patient suffered a cat bite on his right toe on December 01. He was seen in the emergency room, and was sent home on Augmentin. Patient states he finished his complete course of antibiotics. When he did not notice any improvement, this prompted him to come to the emergency room. 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 He denies any headache, lower extremity edema, nausea, vomiting, fever, chills, cough, chest pain, shortness of breath, palpitations, changes in bowel habits. He does complain of frequent urination but denies any dysuria. In the ED, CBC was unremarkable. CMP shows a bicarbonate of 32, B1 of 36, creatinine of 2.11 him a glucose of 128. Lactic acid is 1.3. Foot x-ray is negative for osteomyelitis. Patient is admitted for treatment of right big toe cellulitis, failed outpatient treatment. Infectious diseases on consult. Review of Systems All systems: negative Past Medical History Past Medical History: Heart Failure, COPD, Diabetes Mellitus, Hearing Disorder / Deafness, Hyperlipidemia, Hypertension, Pneumonia, Thyroid Disorder Additional Past Medical History / Comment(s): AAA, bells palsy [place] History of Any Multi-Drug Resistant Organisms: None Reported Additional Past Surgical History / Comment(s): Lasik 2009, Recent Leg surgery in August 2013 "Laser for vericose veins" Past Anesthesia/Blood Transfusion Reactions: No Reported Reaction Past Psychological History: Depression Smoking Status: Former smoker Past Alcohol Use History: Occasional Past Drug Use History: None Reported - Past Family History Mother Family Medical History: Diabetes Mellitus Sister(s) Family Medical History: Diabetes Mellitus Medications and Allergies Home Medications Medication Instructions Recorded Confirmed Type Allopurinol 100 mg PO DAILY 10/20/13 12/13/17 History Levothyroxine Sodium 150 mcg PO DAILY 10/20/13 12/13/17 History Atorvastatin [Lipitor] 20 mg PO HS 01/05/17 12/13/17 History Aspirin [Adult Low Dose Aspirin EC] 81 mg PO DAILY 08/28/17 12/13/17 History Cholecalciferol (Vitamin D3) 2,000 unit PO DAILY 08/28/17 12/13/17 History [Vitamin D3] Furosemide [Lasix] 40 mg PO DAILY #30 tab 08/31/17 12/13/17 Rx Allergies Allergy/AdvReac Type Severity Reaction Status Date / Time No Known Allergies Allergy Verified 12/13/17 11:03 Physical Exam Vitals: Vital Signs Temp Pulse Resp BP Pulse Ox 12/13/17 13:17 50 L 16 145/93 96 12/13/17 10:40 98.2 F 60 16 150/81 100 Intake and Output 12/13/17 12/13/17 12/13/17 06:59 14:59 22:59 Other: Weight 78.471 kg General: [non toxic], [no distress], [appears at stated age] Derm: [warm], [dry] Head: [atraumatic], [normocephalic], [symmetric] Eyes: [EOMI], [no lid lag], [anicteric sclera] Mouth: [no lip lesion], [mucus membranes moist] Cardiovascular: [S1S2 reg], [no murmur], [positive DP pulse bilateral] Lungs: [CTA bilateral], [no rhonchi, no rales] , [no accessory muscle use] Abdominal: [soft], [ nontender to palpation], [no guarding], [no appreciable organomegaly] Ext: [no gross muscle atrophy], [no edema], [no contractures], [right first toe erythematous, with onychomycosis. Wound at the base of the first toe, 1 x 1 cm with minimal discharge.] Neuro: [no focal neuro deficits] Psych: [Alert], [oriented], [appropriate affect] Results CBC & Chem 7: 12/13/17 11:21 12/13/17 11:21 Labs: Abnormal Lab Results - Last 24 Hours (Table) 12/13/17 Range/Units 11:21 Carbon Dioxide 32 H (22-30) mmol/L BUN 36 H (9-20) mg/dL Creatinine 2.11 H (0.66-1.25) mg/dL Glucose 128 H (74-99) mg/dL Thrombosis Risk Factor Assmnt - Choose All That Apply Any of the Below Risk Factors Present?: Yes Each Factor Represents 1 point: Obesity (BMI >25) Each Risk Factor Represents 3 Points: Age 75 years or older Thrombosis Risk Factor Assessment Total Risk Factor Score: 4 Thrombosis Risk Factor Assessment Level: Moderate Risk Assessment and Plan Assessment: Assessment and Plan 1. Cellulitis of the R toe: Patient is afebrile with no leukocytosis. He did fail outpatient Augmentin PO treatment. Foot XR does not show OM. Will start Vancomycin 1500 IV per levels and Pipercillin/Tazobactam 3.375g IV TID. Pain management with Tylenol and [place] PO PRN. FU ESR, CRP, BCx, Would Cx, ID consult 2. Elevated bicarbonate: HCO3 32. Mild and possibly related to home Lasix use. Will DC Lasix for now. Patient is in no respiratory distress. Daily BMP. 3. CKD stage IV: BUN 36 Cr 2.11 GFR 31. Appears at baseline since 2013. Avoid nephrotoxins. Continue NS at 100 cc/h. Daily BMP. FU Nephro outPT 4. Hypertension: BP 145/90. No medications at home (previously taken off ACEi due to hyperK). Monitor vitals, adjust medications as necessary. 5. Diabetes Mellitus: A1c 6.0 08/2017. POC glucose 128. ISS. Regular accuchecks. Diabetic diet. Hypoglycemic precautions. 6. Hypothyroidism: TSH 0.220 08/2017. Continue Synthroid 150 mcg PO QD. FU repeat TSH/FT4 7. ASCVD risk: Continue ASA 81 mg PO QD, Lipitor 20 mg PO QHS. 8. DVT/GI Prophylaxis: Heparin 5000 units SUBCUT BID. Pepcid 20 mg PO BID. DVT prophylaxis: [Heparin] Discussed with: [Patient's granddaughter] Anticipated discharge: [2-3 days] Anticipated discharge place: [Home] A total of [30] minutes was spent on the care of this complex patient more than 50% of the time was spent in counseling and care coordination.
[2017-12-13 17:21] LABS: Glucose,Whole Blood 96 mg/dL (75-99)
[2017-12-13] MEDS: INSULIN ASPART 100 UNIT/ML 1 ML 10 ML VIAL SQ SCH (17:38)
[2017-12-13 19:49] LABS: Appearance,Urine Clear (Clear); Bilirubin,Urine Negative (Negative); Blood,Urine Trace (Negative); Color,Urine Light Yellow; Glucose,Urine (UA) Negative (Negative); Ketones,Urine Negative (Negative); Leukocyte Esterase,Urine Negative (Negative); Nitrite,Urine Negative (Negative); PH, Urine 6.5 (5.0-8.0); Protein,Urine 1+ (Negative); Specific Gravity,Urine 1.009 (1.001-1.035); Urobilinogen,Urine <2.0 mg/dL (<2.0); WBC,Urine <1 /hpf (0-5)
[2017-12-13] MEDS: ATORVASTATIN 20 MG TAB PO SCH (20:26)
[2017-12-13] MEDS: FAMOTIDINE 20 MG TAB PO SCH (20:26)
[2017-12-13] MEDS: HEPARIN SODIUM,PORCINE 5,000 UNIT/ML 1 ML VIAL SQ SCH (20:27)
[2017-12-13] MEDS: PIPERACILLIN-TAZOBACTAM 3.375 GM in DEXTROSE/WATER 1 50ML.BAG IVPB SCH (20:27)
[2017-12-13 20:51] LABS: Glucose,Whole Blood 109 mg/dL (75-99)
--- NOTE | 2017-12-13 23:29 | P.CONS ---
History of Present Illness - Reason for Consult Consult date: 12/13/17 - Chief Complaint Cat-bite - History of Present Illness Nyasia 79-year-old male resents to Hospital with increasing pain and swelling to his right foot at the toe as well as injury to the distal aspect of the right leg. The patient relates that he has 4 pet cats at the home and generally they do well. Patient relates that the litter boxes in the bathroom, the cat alireza was in the restroom with him he was sitting on the toilet. Apparently he somehow agitated the cat while he was using it's litter box, resulting in the cat biting him on the distal aspect of the right great toe and scratching the lower aspect of his leg. Despite being cared for in the outpatient setting it worsened he has increasing swelling and some pain and Was Brought in the Hospital for Admission. The Patient Relates He Is Feeling Just Slightly Better and Is Not Having High-Grade Fevers Chills Rigors or Sweats at This Time. He Is Quite Hard of Hearing. Review of Systems Nyasia 87-year-old male HEENT:Denies headache or acute visual change. Denies sinus or mouth discomforts. Denies neck stiffness or pain. Denies significant oral cavity pain. Denies difficulty on swallowing. Is hard of hearing Lungs: Denies significant shortness of breath, cough, sputum production, or hemoptysis. Cardiovascular: Denies significant shortness of breath, chest pain, chest wall pain, orthopnea, dyspnea on exertion, syncope Gastrointestinal:Denies nausea, vomiting, diarrhea, constipation, hematemesis, melena, hematochezia. No no significant change of bowel habit noticed. Musculoskeletal: denies significant myalgias or arthralgias. No new joint swelling. Denies new back pain. Skin: Wounds to the right foot Neuro: Denies headache or visual change. Denies any new onset weakness or difficulty with ambulation. Denies falls or seizures. Psychiatric:Denies anxiety or depression. Endocrine: Denies significant fatigue, denies significant weight loss or weight gain. Past Medical History Past Medical History: Heart Failure, COPD, Diabetes Mellitus, Hearing Disorder / Deafness, Hyperlipidemia, Hypertension, Pneumonia, Thyroid Disorder Additional Past Medical History / Comment(s): AAA, bells palsy [place] History of Any Multi-Drug Resistant Organisms: None Reported Past Surgical History: Cholecystectomy Additional Past Surgical History / Comment(s): Lasik 2009, Recent Leg surgery in August 2013 "Laser for vericose veins" Past Anesthesia/Blood Transfusion Reactions: No Reported Reaction Additional Psychological History / Comment(s): Is noted lives with 4 cats has a daughter who appears to be in charge. Tobacco smoker stopping many years ago. Retired. experience in the [employer]. No recent travel Smoking Status: Former smoker - Past Family History Mother Family Medical History: Diabetes Mellitus Sister(s) Family Medical History: Diabetes Mellitus Medications and Allergies Home Medications and Allergies Comment(s): Current Medications Acetaminophen (Tylenol Tab) 650 mg PO Q6HR PRN PRN Reason: Mild Pain or Fever > 100.5 Hydrocodone Bitart/Acetaminophen ([place] 5-325) 1 each PO Q4HR PRN PRN Reason: Moderate Pain Allopurinol (Zyloprim) 100 mg PO DAILY [facility] Aspirin (Aspirin) 81 mg PO DAILY [facility] Atorvastatin Calcium (Lipitor) 20 mg PO HS [facility] Last Admin: 12/13/17 20:26 Dose: 20 mg Famotidine (Pepcid) 20 mg PO BID [facility] Last Admin: 12/13/17 20:26 Dose: 20 mg Heparin Sodium (Porcine) (Heparin) 5,000 unit SQ Q12HR [facility] Last Admin: 12/13/17 20:27 Dose: 5,000 unit Vancomycin HCl 1,500 mg/ (Sodium Chloride) 250 mls @ 125 mls/hr IVPB ONCE ONE Stop: 12/14/17 07:59 Piperacillin/Tazobactam/ (Dextrose 3.375 gm/ IV Solution) 50 mls @ 12.5 mls/hr IVPB Q8H [facility] Last Admin: 12/13/17 20:27 Dose: 12.5 mls/hr Insulin Aspart (Novolog) 0 unit SQ AC-TID [facility]; Protocol Last Admin: 12/13/17 17:38 Dose: Not Given Levothyroxine Sodium (Synthroid) 150 mcg PO DAILY@0630 [facility] Miscellaneous Information (Pharmacy To Dose Iv Vancomycin) 1 each MISCELLANE DIRECTED PRN PRN Reason: Per Protocol Naloxone HCl (Narcan) 0.2 mg IV Q2M PRN PRN Reason: Opioid Reversal Home Medications Medication Instructions Recorded Confirmed Type Allopurinol 100 mg PO DAILY 10/20/13 12/13/17 History Levothyroxine Sodium 150 mcg PO DAILY 10/20/13 12/13/17 History Atorvastatin [Lipitor] 20 mg PO HS 01/05/17 12/13/17 History Aspirin [Adult Low Dose Aspirin EC] 81 mg PO DAILY 08/28/17 12/13/17 History Cholecalciferol (Vitamin D3) 2,000 unit PO DAILY 08/28/17 12/13/17 History [Vitamin D3] Furosemide [Lasix] 40 mg PO DAILY #30 tab 08/31/17 12/13/17 Rx Allergies Allergy/AdvReac Type Severity Reaction Status Date / Time No Known Allergies Allergy Verified 12/13/17 11:03 Physical Exam Vitals: Vital Signs Temp Pulse Pulse Resp BP BP Pulse Ox 12/13/17 23:00 98 F 51 L 20 128/73 97 12/13/17 18:17 18 12/13/17 13:17 50 L 16 145/93 96 12/13/17 10:40 98.2 F 60 16 150/81 100 Intake and Output 12/13/17 12/13/17 12/14/17 14:59 22:59 06:59 Intake Total 400 Balance 400 Intake: Oral 400 Other: Voiding Method Toilet Urinal Weight 78.471 kg 79-year-old male hard of hearing pleasant HEENT: Anicteric conjunctiva are pink and moist nasal mucosa grossly intact without significant lesions, there is no thrush. Significant cranial nerve VIII defects Neck: The neck is supple without significant lymphadenopathy or thyromegaly. Lungs: Symmetrical air entry. Expiratory wheezes no bronchial sounds on dullness or cough any Heart: Regular rate and rhythm with an audible S1-S2, no S3 no S4. There is no significant murmur click or rub, PMI was nondisplaced. Abdomen: Mildly obese Positive bowel sounds soft and nontender without palpable masses or organomegaly. There was no guarding or rebound. Extremities: The upper extremities have excellent pulses they are symmetric, no significant petechiae or telangiectasia. No splinter hemorrhages were noted. Left lower extremity without any abnormalities. Right foot shows evidence of the significant swelling to the right great toe with a distal ulceration. There is no expressible purulence. There is the ulceration to the right calf area laterally he relates from the cat scratch. No purulence. There is no significant ascending erythema and there is no lymphadenopathy to the right groin. No other abnormal lymphadenopathy is noted Neuro: Awake alert oriented to person place and time. There are no acute new gross focal sensory motor deficits. Has cranial nerve VIII deficiency Results CBC & Chem 7: 12/13/17 11:21 12/13/17 11:21 Labs: Abnormal Lab Results - Last 24 Hours (Table) 12/13/17 12/13/17 12/13/17 Range/Units 11:21 19:30 20:45 Carbon Dioxide 32 H (22-30) mmol/L BUN 36 H (9-20) mg/dL Creatinine 2.11 H (0.66-1.25) mg/dL Glucose 128 H (74-99) mg/dL POC Glucose (mg/dL) 109 H (75-99) mg/dL Urine Protein 1+ H (Negative) Urine Blood Trace H (Negative) Microbiology - Last 24 Hours (Table) 12/13/17 12:29 Wound Culture - Preliminary Toe - Right First Laboratory Results WBC 8.4 k/uL (3.8-10.6) 12/13/17 11:21 RBC 4.69 m/uL (4.30-5.90) 12/13/17 11:21 Hgb 14.7 gm/dL (13.0-17.5) 12/13/17 11:21 Hct 46.8 % (39.0-53.0) 12/13/17 11:21 MCV 99.8 fL (80.0-100.0) 12/13/17 11:21 MCH 31.4 pg (25.0-35.0) 12/13/17 11:21 MCHC 31.4 g/dL (31.0-37.0) 12/13/17 11:21 RDW 13.5 % (11.5-15.5) 12/13/17 11:21 Plt Count 250 k/uL (150-450) 12/13/17 11:21 Neutrophils % 76 % 12/13/17 11:21 Lymphocytes % 16 % 12/13/17 11:21 Monocytes % 4 % 12/13/17 11:21 Eosinophils % 2 % 12/13/17 11:21 Basophils % 1 % 12/13/17 11:21 Neutrophils # 6.4 k/uL (1.3-7.7) 12/13/17 11:21 Lymphocytes # 1.3 k/uL (1.0-4.8) 12/13/17 11:21 Monocytes # 0.4 k/uL (0-1.0) 12/13/17 11:21 Eosinophils # 0.2 k/uL (0-0.7) 12/13/17 11:21 Basophils # 0.1 k/uL (0-0.2) 12/13/17 11:21 Sodium 140 mmol/L (137-145) 12/13/17 11:21 Potassium 4.8 mmol/L (3.5-5.1) 12/13/17 11:21 Chloride 103 mmol/L (98-107) 12/13/17 11:21 Carbon Dioxide 32 mmol/L (22-30) H 12/13/17 11:21 Anion Gap 5 mmol/L 12/13/17 11:21 BUN 36 mg/dL (9-20) H 12/13/17 11:21 Creatinine 2.11 mg/dL (0.66-1.25) H 12/13/17 11:21 Est GFR (CKD-EPI)AfAm 31 (>60 ml/min/1.73 sqM) 12/13/17 11:21 Est GFR (CKD-EPI)NonAf 27 (>60 ml/min/1.73 sqM) 12/13/17 11:21 Glucose 128 mg/dL (74-99) H 12/13/17 11:21 POC Glucose (mg/dL) 109 mg/dL (75-99) H 12/13/17 20:45 POC Glu [place] ID Iadnia Christina 12/13/17 20:45 Plasma Lactic Acid [place] 1.3 mmol/L (0.7-2.0) 12/13/17 11:21 Calcium 9.3 mg/dL (8.4-10.2) 12/13/17 11:21 Urine Color Light Yellow 12/13/17 19:30 Urine Appearance Clear (Clear) 12/13/17 19:30 Urine pH 6.5 (5.0-8.0) 12/13/17 19:30 Ur Specific [place] 1.009 (1.001-1.035) 12/13/17 19:30 Urine Protein 1+ (Negative) H 12/13/17 19:30 Urine Glucose (UA) Negative (Negative) 10/25/18 19:30 Urine Ketones Negative (Negative) 12/13/17 19:30 Urine Blood Trace (Negative) H 12/13/17 19:30 Urine Nitrite Negative (Negative) 12/13/17 19:30 Urine Bilirubin Negative (Negative) 12/13/17 19:30 Urine Urobilinogen <2.0 mg/dL (<2.0) 12/13/17 19:30 Ur Leukocyte Esterase Negative (Negative) 12/13/17 19:30 Urine WBC <1 /hpf (0-5) 12/13/17 19:30 Microbiology 12/13/17 12:29 Toe - Right First Wound Culture - Preliminary Comments: X-ray without fracture but possible foreign body Assessment and Plan (1) Cat bite Narrative/Plan: 87-year-old male presents to Hospital with complaints of increasing pain and swelling to the right great toe status post cat bite. With the lack of stability and improvement after being on oral antibiotic therapy with Augmentin is now admitted and is on antibiotic therapy with vancomycin and piperacillin tazobactam. Wound culture is in process. Will further help direct antibiotic therapy. Local wound care is requested with therahoney gel which he be changed daily for now. Elevate the limb while at rest There some abnormalities to the x-ray was asked for a bone scan to further evaluate the possibility of underlying bony infection. Current Visit: No Status: Acute Code(s): W55.01XA - BITTEN BY CAT, INITIAL ENCOUNTER SNOMED Code(s): 162334704 (2) Diabetic foot infection Current Visit: Yes Status: Acute Code(s): E11.628 - TYPE 2 DIABETES MELLITUS WITH OTHER SKIN COMPLICATIONS; L08.9 - LOCAL INFECTION OF THE SKIN AND SUBCUTANEOUS TISSUE, UNSP SNOMED Code(s): 920181642
[2017-12-14] MEDS: PIPERACILLIN-TAZOBACTAM 3.375 GM in DEXTROSE/WATER 1 50ML.BAG IVPB SCH ×3 (03:45→19:47)
[2017-12-14] MEDS ORDERED: VANCOMYCIN 1,500 MG in SODIUM CHLORIDE 0.9% 250 ML IVPB ONE (06:00)
[2017-12-14] MEDS: LEVOTHYROXINE 75 MCG TAB PO SCH (06:34)
[2017-12-14 06:58] LABS: Glucose,Whole Blood 95 mg/dL (75-99)
[2017-12-14] MEDS: INSULIN ASPART 100 UNIT/ML 1 ML 10 ML VIAL SQ SCH ×3 (07:05→17:42)
[2017-12-14] MEDS: FAMOTIDINE 20 MG TAB PO SCH (08:30)
[2017-12-14] MEDS: HEPARIN SODIUM,PORCINE 5,000 UNIT/ML 1 ML VIAL SQ SCH ×2 (08:30→21:53)
[2017-12-14] MEDS: ALLOPURINOL 100 MG TAB PO SCH (08:30)
[2017-12-14] MEDS: ASPIRIN 81 MG PO SCH (08:30)
[2017-12-14 08:38] LABS: Anion Gap 5 mmol/L; Blood Urea Nitrogen 32 mg/dL (9-20); C Reactive Protein <5.0 mg/L (<10.0); Calcium 8.5 mg/dL (8.4-10.2); Carbon Dioxide 31 mmol/L (22-30); Chloride 103 mmol/L (98-107); Glucose 115 mg/dL (74-99); Potassium 4.7 mmol/L (3.5-5.1); Sodium 139 mmol/L (137-145)
[2017-12-14] MEDS ORDERED: VANCOMYCIN 1,500 MG in SODIUM CHLORIDE 0.9% 250 ML IVPB SCH (09:00)
[2017-12-14] MEDS ORDERED: FUROSEMIDE 40 MG TAB PO SCH (09:00)
[2017-12-14 11:27] LABS: Glucose,Whole Blood 93 mg/dL (75-99)
--- NOTE | 2017-12-14 13:09 | P.PN ---
Subjective Progress Note Date: 12/14/17 Principal diagnosis: Right toe infection Patient was seen and examined. No acute events overnight. Patient with no complaints at this time. Requesting to go home. No fever, chills, toe pain. Objective - Vital Signs Vital signs: Vital Signs Temp 98.5 F 12/14/17 06:15 Pulse 42 L 12/14/17 06:15 Resp 20 12/14/17 06:15 BP 126/68 12/14/17 06:15 Pulse Ox 96 12/14/17 06:15 Intake & Output 12/13/17 12/14/17 12/14/17 18:59 06:59 18:59 Intake Total 500 Balance 500 Weight 78.471 kg Intake: Oral 500 Other: Voiding Method Toilet Urinal # Voids 2 - Exam General: [non toxic], [no distress], [appears at stated age] Derm: [warm], [dry] Head: [atraumatic], [normocephalic], [symmetric] Eyes: [EOMI], [no lid lag], [anicteric sclera] Mouth: [no lip lesion], [mucus membranes moist] Cardiovascular: [S1S2 reg], [no murmur], [positive DP pulse bilateral] Lungs: [CTA bilateral], [no rhonchi, no rales] , [no accessory muscle use] Abdominal: [soft], [ nontender to palpation], [no guarding], [no appreciable organomegaly] Ext: [no gross muscle atrophy], [no edema], [no contractures], [right first toe erythematous, with onychomycosis. Wound at the base of the first toe, 1 x 1 cm with minimal discharge.] Neuro: [no focal neuro deficits] Psych: [Alert], [oriented], [appropriate affect] - Labs CBC & Chem 7: 12/13/17 11:21 12/14/17 08:08 Labs: Abnormal Lab Results - Last 24 Hours (Table) 12/13/17 12/13/17 12/14/17 Range/Units 19:30 20:45 08:08 ESR (0-15) mm/hr Carbon Dioxide 31 H (22-30) mmol/L BUN 32 H (9-20) mg/dL Creatinine 2.00 H (0.66-1.25) mg/dL Glucose 115 H (74-99) mg/dL POC Glucose (mg/dL) 109 H (75-99) mg/dL Urine Protein 1+ H (Negative) Urine Blood Trace H (Negative) 12/14/17 Range/Units 08:08 ESR 20 H (0-15) mm/hr Carbon Dioxide (22-30) mmol/L BUN (9-20) mg/dL Creatinine (0.66-1.25) mg/dL Glucose (74-99) mg/dL POC Glucose (mg/dL) (75-99) mg/dL Urine Protein (Negative) Urine Blood (Negative) Microbiology - Last 24 Hours (Table) 12/13/17 12:29 Gram Stain - Preliminary Toe - Right First Wound Culture - Preliminary 12/13/17 19:30 Urine Culture - Preliminary Urine,Clean Catch Assessment and Plan Assessment: Assessment and Plan 1. Cellulitis of the R toe: Patient is afebrile with no leukocytosis. He did fail outpatient Augmentin PO treatment. Foot XR does not show OM. ESR elevated at 20, CRP is within normal limits. Wound culture prelim negative after 24 hours. Blood culture not collected on admission, will collect now. Continue Vancomycin 1500 IV per levels and Pipercillin/Tazobactam 3.375g IV TID. Pain management with Tylenol and [place] PO PRN. ID consulted, recommended bone scan. FU BCx, Would Cx, Bone scan, ID consult 2. Elevated bicarbonate: HCO3 32 to 31. Mild and possibly related to home Lasix use. Will DC Lasix for now. Patient is in no respiratory distress. Daily BMP. 3. CKD stage IV: BUN 32 Cr 2.00 GFR 29. Appears at baseline since 2013. Avoid nephrotoxins. Continue NS at 100 cc/h. Daily BMP. FU Nephro outPT 4. Hypertension: BP 126/68. No medications at home (previously taken off ACEi due to hyperK). Monitor vitals, adjust medications as necessary. 5. Diabetes Mellitus: A1c 6.0 08/2017. POC glucose 93. ISS. Regular accuchecks. Diabetic diet. Hypoglycemic precautions. 6. Hypothyroidism: TSH 0.220 08/2017. Continue Synthroid 150 mcg PO QD. FU repeat TSH/FT4 7. ASCVD risk: Continue ASA 81 mg PO QD, Lipitor 20 mg PO QHS. 8. DVT/GI Prophylaxis: Heparin 5000 units SUBCUT BID. Pepcid 20 mg PO BID.
--- NOTE | 2017-12-14 13:47 | NM ---
EXAMINATION TYPE: NM bone 3 phase DATE OF EXAM: 12/14/2017 COMPARISON: NONE HISTORY: Osteomyelitis right great toe Triple phase bone scintigraphy was performed following the injection of 25.1 mCi Tc 99m MDP. Immedia te images and 5.5 hours post injection images acquired. FINDINGS: On all 3 phases of the examination there is increased radiotracer accumulation involving the right gr eat toe distal phalanx. The findings are nonspecific and could reflect osteomyelitis versus posttraum atic change. No additional areas of abnormal uptake are present at this time. IMPRESSION: Findings suspicious for osteomyelitis of the right great toe distal phalanx. Correlate clinically.
[2017-12-14 17:17] LABS: Glucose,Whole Blood 108 mg/dL (75-99)
[2017-12-14 20:44] LABS: Glucose,Whole Blood 123 mg/dL (75-99)
[2017-12-14] MEDS: ATORVASTATIN 20 MG TAB PO SCH (21:53)
--- NOTE | 2017-12-14 22:54 | P.PN ---
Subjective Progress Note Date: 12/14/17 Pleasant 79-year-old male resents to Hospital with increasing pain and swelling to his right foot at the toe as well as injury to the distal aspect of the right leg. The patient relates that he has 4 pet cats at the home and generally they do well. Patient relates that the litter boxes in the bathroom, the cat alireza was in the restroom with him he was sitting on the toilet. Apparently he somehow agitated the cat while he was using it's litter box, resulting in the cat biting him on the distal aspect of the right great toe and scratching the lower aspect of his leg. Despite being cared for in the outpatient setting it worsened he has increasing swelling and some pain and Was Brought in the Hospital for Admission. The Patient Relates He Is Feeling Just Slightly Better and Is Not Having High-Grade Fevers Chills Rigors or Sweats at This Time. He Is Quite Hard of Hearing. 12/14/2017 patient is feeling better today. No new complaints. We discussed that the bone scan has come back positive for the osteomyelitis of the great toe. He will need a course of intravenous antibiotic therapy. IV access will be needed also. Patient denies new complaints Objective - Vital Signs Vital signs: Vital Signs Temp 97.9 F 12/14/17 14:17 Pulse 48 L 12/14/17 14:17 Resp 16 12/14/17 17:40 BP 147/59 12/14/17 14:17 Pulse Ox 98 12/14/17 14:17 Intake & Output 12/14/17 12/14/17 12/15/17 06:59 18:59 06:59 Intake Total 500 Balance 500 Intake: Oral 500 Other: Voiding Method Urinal # Voids 2 3 - Exam 79-year-old male hard of hearing pleasant HEENT: Anicteric conjunctiva are pink and moist nasal mucosa grossly intact without significant lesions, there is no thrush. Significant cranial nerve VIII defects Neck: The neck is supple without significant lymphadenopathy or thyromegaly. Lungs: Symmetrical air entry. Expiratory wheezes no bronchial sounds on dullness or cough any Heart: Regular rate and rhythm with an audible S1-S2, no S3 no S4. There is no significant murmur click or rub, PMI was nondisplaced. Abdomen: Mildly obese Positive bowel sounds soft and nontender without palpable masses or organomegaly. There was no guarding or rebound. Extremities: The upper extremities have excellent pulses they are symmetric, no significant petechiae or telangiectasia. No splinter hemorrhages were noted. Left lower extremity without any abnormalities. Right foot shows evidence of the significant swelling to the right great toe with a distal ulceration. There is no expressible purulence. There is the ulceration to the right calf area laterally he relates from the cat scratch. No purulence. There is no significant ascending erythema and there is no lymphadenopathy to the right groin. No other abnormal lymphadenopathy is noted Neuro: Awake alert oriented to person place and time. There are no acute new gross focal sensory motor deficits. Has cranial nerve VIII deficiency - Labs CBC & Chem 7: 12/13/17 11:21 12/14/17 08:08 Labs: Abnormal Lab Results - Last 24 Hours (Table) 12/14/17 12/14/17 12/14/17 Range/Units 08:08 08:08 17:13 ESR 20 H (0-15) mm/hr Carbon Dioxide 31 H (22-30) mmol/L BUN 32 H (9-20) mg/dL Creatinine 2.00 H (0.66-1.25) mg/dL Glucose 115 H (74-99) mg/dL POC Glucose (mg/dL) 108 H (75-99) mg/dL 12/14/17 Range/Units 20:43 ESR (0-15) mm/hr Carbon Dioxide (22-30) mmol/L BUN (9-20) mg/dL Creatinine (0.66-1.25) mg/dL Glucose (74-99) mg/dL POC Glucose (mg/dL) 123 H (75-99) mg/dL Microbiology - Last 24 Hours (Table) 12/13/17 12:29 Gram Stain - Preliminary Toe - Right First Wound Culture - Preliminary 12/13/17 19:30 Urine Culture - Preliminary Urine,Clean Catch Laboratory Results WBC 8.4 k/uL (3.8-10.6) 12/13/17 11:21 RBC 4.69 m/uL (4.30-5.90) 12/13/17 11:21 Hgb 14.7 gm/dL (13.0-17.5) 12/13/17 11:21 Hct 46.8 % (39.0-53.0) 12/13/17 11:21 MCV 99.8 fL (80.0-100.0) 12/13/17 11:21 MCH 31.4 pg (25.0-35.0) 12/13/17 11:21 MCHC 31.4 g/dL (31.0-37.0) 12/13/17 11:21 RDW 13.5 % (11.5-15.5) 12/13/17 11:21 Plt Count 250 k/uL (150-450) 12/13/17 11:21 Neutrophils % 76 % 12/13/17 11:21 Lymphocytes % 16 % 12/13/17 11:21 Monocytes % 4 % 12/13/17 11:21 Eosinophils % 2 % 12/13/17 11:21 Basophils % 1 % 12/13/17 11:21 Neutrophils # 6.4 k/uL (1.3-7.7) 12/13/17 11:21 Lymphocytes # 1.3 k/uL (1.0-4.8) 12/13/17 11:21 Monocytes # 0.4 k/uL (0-1.0) 12/13/17 11:21 Eosinophils # 0.2 k/uL (0-0.7) 12/13/17 11:21 Basophils # 0.1 k/uL (0-0.2) 12/13/17 11:21 ESR 20 mm/hr (0-15) H 12/14/17 08:08 Sodium 139 mmol/L (137-145) 12/14/17 08:08 Potassium 4.7 mmol/L (3.5-5.1) 12/14/17 08:08 Chloride 103 mmol/L (98-107) 12/14/17 08:08 Carbon Dioxide 31 mmol/L (22-30) H 12/14/17 08:08 Anion Gap 5 mmol/L 12/14/17 08:08 BUN 32 mg/dL (9-20) H 12/14/17 08:08 Creatinine 2.00 mg/dL (0.66-1.25) H 12/14/17 08:08 Est GFR (CKD-EPI)AfAm 33 (>60 ml/min/1.73 sqM) 12/14/17 08:08 Est GFR (CKD-EPI)NonAf 29 (>60 ml/min/1.73 sqM) 12/14/17 08:08 Glucose 115 mg/dL (74-99) H 12/14/17 08:08 POC Glucose (mg/dL) 123 mg/dL (75-99) H 12/14/17 20:43 POC Glu Certified Anesthesiologist Assistant ID Mariel Eckert 12/14/17 20:43 Plasma Lactic Acid Peter 1.3 mmol/L (0.7-2.0) 12/13/17 11:21 Calcium 8.5 mg/dL (8.4-10.2) 12/14/17 08:08 C-Reactive Protein <5.0 mg/L (<10.0) 12/14/17 08:08 Urine Color Light Yellow 12/13/17 19:30 Urine Appearance Clear (Clear) 12/13/17 19:30 Urine pH 6.5 (5.0-8.0) 12/13/17 19:30 Ur Specific [place] 1.009 (1.001-1.035) 12/13/17 19:30 Urine Protein 1+ (Negative) H 12/13/17 19:30 Urine Glucose (UA) Negative (Negative) 12/13/17 19:30 Urine Ketones Negative (Negative) 12/13/17 19:30 Urine Blood Trace (Negative) H 12/13/17 19:30 Urine Nitrite Negative (Negative) 12/13/17 19:30 Urine Bilirubin Negative (Negative) 12/13/17 19:30 Urine Urobilinogen <2.0 mg/dL (<2.0) 12/13/17 19:30 Ur Leukocyte Esterase Negative (Negative) 12/13/17 19:30 Urine WBC <1 /hpf (0-5) 12/13/17 19:30 Microbiology 12/13/17 12:29 Toe - Right First Gram Stain - Preliminary 12/13/17 12:29 Toe - Right First Wound Culture - Preliminary 12/13/17 19:30 Urine,Clean Catch Urine Culture - Preliminary - Imaging and Cardiology Bone scan noted. Positive bautista as well as the distal aspect of the right great toe Assessment and Plan (1) Cat bite Narrative/Plan: 87-year-old male presents to Hospital with complaints of increasing pain and swelling to the right great toe status post cat bite. With the lack of stability and improvement after being on oral antibiotic therapy with Augmentin is now admitted and is on antibiotic therapy with vancomycin and piperacillin tazobactam. Wound culture is in process. Will further help direct antibiotic therapy. Local wound care is requested with therahoney gel which he be changed daily for now. Elevate the limb while at rest There some abnormalities to the x-ray was asked for a bone scan to further evaluate the possibility of underlying bony infection. 12/14/2017 patient is comfortable today. 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 This is discussed with the patient that he will have a need for outpatient intravenous antibiotic therapy. Likely will be going to rehab. Will need IV access to be placed. If no positive cultures are noted could utilize [facility] facility for treatment of the cat bite related osteomyelitis. Continue local wound care doing well with the therahoney dressing. Current Visit: No Status: Acute Code(s): W55.01XA - BITTEN BY CAT, INITIAL ENCOUNTER SNOMED Code(s): 809343409 (2) Diabetic foot infection Current Visit: Yes Status: Acute Code(s): E11.628 - TYPE 2 DIABETES MELLITUS WITH OTHER SKIN COMPLICATIONS; L08.9 - LOCAL INFECTION OF THE SKIN AND SUBCUTANEOUS TISSUE, UNSP SNOMED Code(s): 233529099
[2017-12-15] MEDS: PIPERACILLIN-TAZOBACTAM 3.375 GM in DEXTROSE/WATER 1 50ML.BAG IVPB SCH ×3 (04:04→21:19)
[2017-12-15 05:46] LABS: Calcium 8.5 mg/dL (8.4-10.2); Potassium 4.6 mmol/L (3.5-5.1)
[2017-12-15 05:55] LABS: Prothrombin Time 10.2 sec (9.0-12.0)
[2017-12-15] MEDS: LEVOTHYROXINE 75 MCG TAB PO SCH (06:22)
[2017-12-15 07:07] LABS: Glucose,Whole Blood 93 mg/dL (75-99)
[2017-12-15] MEDS: INSULIN ASPART 100 UNIT/ML 1 ML 10 ML VIAL SQ SCH ×3 (07:47→18:18)
[2017-12-15] MEDS: HEPARIN SODIUM,PORCINE 5,000 UNIT/ML 1 ML VIAL SQ SCH ×2 (10:53→21:18)
[2017-12-15] MEDS: ASPIRIN 81 MG PO SCH (10:54)
[2017-12-15] MEDS: ALLOPURINOL 100 MG TAB PO SCH (10:54)
[2017-12-15] MEDS: FAMOTIDINE 20 MG TAB PO SCH (10:54)
[2017-12-15 11:23] LABS: Glucose,Whole Blood 129 mg/dL (75-99)
--- NOTE | 2017-12-15 13:53 | P.NPCON ---
History of Present Illness - Reason for Consult Consult date: 12/15/17 (Nephrology) chronic renal failure - Chief Complaint Right toe infection - History of Present Illness Admitted to the hospital with a right toe pain and swelling secondary to failed outpatient antibiotic for a cat bite. He has history of CK D stage III baseline creatinine around 2.0 MG per DL follows with Dr. Chun as outpatient. Foot x-ray was negative for osteomyelitis and nephrology was consulted for a PICC line placement for IV antibiotics as outpatient. NSAID use or recent contrast study. Creatinine at baseline. Review of Systems Constitutional: Reports as per HPI Past Medical History Past Medical History: Heart Failure, COPD, Diabetes Mellitus, Hearing Disorder / Deafness, Hyperlipidemia, Hypertension, Pneumonia, Thyroid Disorder Additional Past Medical History / Comment(s): AAA, bells palsy otoe-[place] History of Any Multi-Drug Resistant Organisms: None Reported Past Surgical History: Cholecystectomy Additional Past Surgical History / Comment(s): Lasik 2009, Recent Leg surgery in August 2013 "Laser for vericose veins" Past Anesthesia/Blood Transfusion Reactions: No Reported Reaction Additional Psychological History / Comment(s): Is noted lives with 4 cats has a daughter who appears to be in charge. Tobacco smoker stopping many years ago. Retired. experience in the [employer]. No recent travel Smoking Status: Former smoker - Past Family History Mother Family Medical History: Diabetes Mellitus Sister(s) Family Medical History: Diabetes Mellitus Medications and Allergies Home Medications Medication Instructions Recorded Confirmed Type Allopurinol 100 mg PO DAILY 10/20/13 12/13/17 History Levothyroxine Sodium 150 mcg PO DAILY 10/20/13 12/13/17 History Atorvastatin [Lipitor] 20 mg PO HS 01/05/17 12/13/17 History Aspirin [Adult Low Dose Aspirin EC] 81 mg PO DAILY 08/28/17 12/13/17 History Cholecalciferol (Vitamin D3) 2,000 unit PO DAILY 08/28/17 12/13/17 History [Vitamin D3] Furosemide [Lasix] 40 mg PO DAILY #30 tab 08/31/17 12/13/17 Rx Allergies Allergy/AdvReac Type Severity Reaction Status Date / Time No Known Allergies Allergy Verified 12/13/17 11:03 Physical Exam Vitals: Vital Signs Temp Pulse Resp BP Pulse Ox 12/15/17 06:23 96.6 F L 43 L 17 144/63 97 12/14/17 22:56 96.6 F L 48 L 17 166/82 99 12/14/17 17:40 16 12/14/17 14:17 97.9 F 48 L 16 147/59 98 Intake and Output 12/14/17 12/15/17 12/15/17 22:59 06:59 14:59 Intake Total 375 Output Total 700 Balance -700 375 Intake: Oral 375 Output: Urine 700 Other: Voiding Method Urinal Toilet Urinal # Voids 2 1 No acute distress S1-S2 heard Lungs clear No edema Results - Lab Results Most recent lab results Calcium 8.5 mg/dL (8.4-10.2) 12/15/17 05:19 12/13/17 11:21 12/15/17 05:19 Assessment and Plan Assessment: #1 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 #2 toe infection secondary to cat bite failed outpatient antibiotic #3 hypertension with chronic kidney disease #4 anemia with chronic kidney disease Plan: #1 creatinine currently at baseline. Okay to place a PICC line for antibiotic use. #2 chronic kidney disease medications # 3 avoid nephrotoxic agents and hypotensive episodes
--- NOTE | 2017-12-15 16:10 | P.PN ---
Subjective Progress Note Date: 12/15/17 Principal diagnosis: OM L toe Patient seen and examined. No acute events overnight. Patient reports no toe pain at this time. No fevers or chills. Bone scan consistent with OM. Happy with going to [facility]. Objective - Vital Signs Vital signs: Vital Signs Temp 97.2 F L 12/15/17 15:00 Pulse 44 L 12/15/17 15:00 Resp 16 12/15/17 15:00 BP 141/69 12/15/17 15:00 Pulse Ox 99 12/15/17 15:00 Intake & Output 12/14/17 12/15/17 12/15/17 18:59 06:59 18:59 Intake Total 375 Output Total 700 Balance -700 375 Intake: Oral 375 Output: Urine 700 Other: Voiding Method Urinal Toilet Urinal # Voids 3 2 3 - Exam General: [non toxic], [no distress], [appears at stated age] Derm: [warm], [dry] Head: [atraumatic], [normocephalic], [symmetric] Eyes: [EOMI], [no lid lag], [anicteric sclera] Mouth: [no lip lesion], [mucus membranes moist] Cardiovascular: [S1S2 reg], [no murmur], [positive DP pulse bilateral] Lungs: [CTA bilateral], [no rhonchi, no rales] , [no accessory muscle use] Abdominal: [soft], [ nontender to palpation], [no guarding], [no appreciable organomegaly] Ext: [no gross muscle atrophy], [no edema], [no contractures], [right first toe erythematous, with onychomycosis. Wound at the base of the first toe, 1 x 1 cm with minimal discharge.] Neuro: [no focal neuro deficits] Psych: [Alert], [oriented], [appropriate affect] - Labs CBC & Chem 7: 12/13/17 11:21 12/15/17 05:19 Labs: Abnormal Lab Results - Last 24 Hours (Table) 12/14/17 12/14/17 12/15/17 Range/Units 17:13 20:43 05:19 BUN 32 H (9-20) mg/dL Creatinine 2.05 H (0.66-1.25) mg/dL POC Glucose (mg/dL) 108 H 123 H (75-99) mg/dL 12/15/17 Range/Units 11:21 BUN (9-20) mg/dL Creatinine (0.66-1.25) mg/dL POC Glucose (mg/dL) 129 H (75-99) mg/dL Microbiology - Last 24 Hours (Table) 12/13/17 12:29 Gram Stain - Final Toe - Right First Wound Culture - Final 12/14/17 09:01 Blood Culture - Preliminary Blood No Growth after 24 hours 12/13/17 19:30 Urine Culture - Final Urine,Clean Catch Assessment and Plan Assessment: Assessment and Plan 1. OM of the R toe: Patient is afebrile with no leukocytosis. He did fail outpatient Augmentin PO treatment. Foot XR does not show OM. ESR elevated at 20 , CRP is within normal limits. Bone scan consistent with gastroenteritis. Wound culture negative. Blood culture prelim negative after 24 hours. Continue Vancomycin 1500 IV per levels and Pipercillin/Tazobactam 3.375g IV TID. Pain management with Tylenol and [place] PO PRN. Patient will need PICC line on Sunday for 6 weeks of IV antibiotics. ID recommendations appreciated. FU BCx (final), ID consult 2. CKD stage IV: BUN 32 Cr 2.05 GFR 28. Appears at baseline since 2013. Avoid nephrotoxins. Continue NS at 100 cc/h. Daily BMP. FU Nephro outPT 3. Hypertension: BP 141/69. No medications at home (previously taken off ACEi due to hyperK). Monitor vitals, adjust medications as necessary. 4. Diabetes Mellitus: A1c 6.0 08/2017. POC glucose 129. ISS. Regular accuchecks. Diabetic diet. Hypoglycemic precautions. 5. Hypothyroidism: TSH 0.220 08/2017. Continue Synthroid 150 mcg PO QD. TSH within normal limits. 6. ASCVD risk: Continue ASA 81 mg PO QD, Lipitor 20 mg PO QHS. 7. DVT/GI Prophylaxis: Heparin 5000 units SUBCUT BID. Pepcid 20 mg PO BID. Resolved: Elevated bicarbonate Bone scan consistent with OM. Will need 6 weeks of IV Abx. Agreeable for placement at [facility] in the meantime. Daughter at bedside, discussed the following plan.
[2017-12-15 16:32] LABS: Glucose,Whole Blood 144 mg/dL (75-99)
[2017-12-15 20:45] LABS: Glucose,Whole Blood 145 mg/dL (75-99)
[2017-12-15] MEDS: ATORVASTATIN 20 MG TAB PO SCH (21:18)
[2017-12-16] MEDS: PIPERACILLIN-TAZOBACTAM 3.375 GM in DEXTROSE/WATER 1 50ML.BAG IVPB SCH ×3 (05:17→20:51)
[2017-12-16] MEDS: LEVOTHYROXINE 75 MCG TAB PO SCH (06:22)
[2017-12-16 07:02] LABS: Glucose,Whole Blood 93 mg/dL (75-99)
[2017-12-16 07:39] LABS: Calcium 8.3 mg/dL (8.4-10.2); Potassium 4.5 mmol/L (3.5-5.1)
[2017-12-16] MEDS: ALLOPURINOL 100 MG TAB PO SCH (08:08)
[2017-12-16] MEDS: ASPIRIN 81 MG PO SCH (08:08)
[2017-12-16] MEDS: INSULIN ASPART 100 UNIT/ML 1 ML 10 ML VIAL SQ SCH ×3 (08:08→17:44)
[2017-12-16] MEDS: FAMOTIDINE 20 MG TAB PO SCH (08:08)
[2017-12-16] MEDS: HEPARIN SODIUM,PORCINE 5,000 UNIT/ML 1 ML VIAL SQ SCH ×2 (08:08→20:51)
[2017-12-16 09:37] LABS: Vancomycin,Random 10.7 ug/mL
--- NOTE | 2017-12-16 11:46 | P.PN ---
Subjective Progress Note Date: 12/16/17 Principal diagnosis: Chronic kidney disease and need for PICC line Seen and examined for the follow-up of chronic kidney disease. Long history of diabetes with a baseline creatinine around 1.8-2.2 MG per DL currently at baseline. Nausea vomiting or diarrhea vancomycin trough level around 10 Objective - Vital Signs Vital signs: Vital Signs Temp 98.2 F 12/16/17 06:04 Pulse 45 L 12/16/17 06:04 Resp 16 12/16/17 06:04 BP 113/54 12/16/17 06:04 Pulse Ox 98 12/16/17 06:04 Intake & Output 12/15/17 12/16/17 12/16/17 18:59 06:59 18:59 Intake Total 650 Balance 650 Intake: Oral 650 Other: Voiding Method Toilet Toilet Urinal Urinal # Voids 3 1 # Bowel Movements 1 - Exam No acute distress S1-S2 heard Lungs clear No edema - Labs CBC & Chem 7: 12/13/17 11:21 12/16/17 06:46 Labs: Abnormal Lab Results - Last 24 Hours (Table) 12/15/17 12/15/17 12/16/17 Range/Units 16:27 20:44 06:46 BUN 29 H (9-20) mg/dL Creatinine 2.18 H (0.66-1.25) mg/dL POC Glucose (mg/dL) 144 H 145 H (75-99) mg/dL Calcium 8.3 L (8.4-10.2) mg/dL Microbiology - Last 24 Hours (Table) 12/14/17 09:01 Blood Culture - Preliminary Blood No Growth after 48 hours 12/13/17 12:29 Gram Stain - Final Toe - Right First Wound Culture - Final Assessment and Plan Assessment: #1 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 Baseline creatinine around 1.8-2.2 MG per DL #2 toe infection secondary to cat bite failed outpatient antibiotic #3 hypertension with chronic kidney disease #4 anemia with chronic kidney disease Plan: #1 creatinine currently at baseline. Okay to place a PICC line for antibiotic use. #2 chronic kidney disease medications # 3 avoid nephrotoxic agents and hypotensive episodes #4 keep Vanco trough levels less than 20
[2017-12-16] MEDS ORDERED: VANCOMYCIN 1,500 MG in SODIUM CHLORIDE 0.9% 250 ML IVPB ONE (12:00)
[2017-12-16 12:16] LABS: Glucose,Whole Blood 82 mg/dL (75-99)
--- NOTE | 2017-12-16 14:47 | P.PN ---
Subjective Progress Note Date: 12/16/17 Principal diagnosis: Osteomyelitis of the toe. Patient seen and examined no acute events overnight patient has no complaints today. He denies any toe pain. No fever or chills. No chest pain, palpitations or shortness of breath. Objective - Vital Signs Vital signs: Vital Signs Temp 97.2 F L 12/16/17 14:40 Pulse 47 L 12/16/17 14:40 Resp 16 12/16/17 14:40 BP 140/73 12/16/17 14:40 Pulse Ox 95 12/16/17 14:40 Intake & Output 12/15/17 12/16/17 12/16/17 18:59 06:59 18:59 Intake Total 650 300 Balance 650 300 Intake: Intake, IV Titration 300 Amount Piperacillin-Tazobactam 3 50 .375 gm In Dextrose/Water 1 50ml.bag @ 12.5 mls/hr IVPB Q8H [facility] Rx#: [id number] Vancomycin 1,500 mg In 250 Sodium Chloride 0.9% 250 ml @ 125 mls/hr IVPB ONCE ONE Rx#:[id number] Oral 650 Other: Voiding Method Toilet Toilet Urinal Urinal # Voids 3 1 # Bowel Movements 1 - Exam General: [non toxic], [no distress], [appears at stated age] Derm: [warm], [dry] Head: [atraumatic], [normocephalic], [symmetric] Eyes: [EOMI], [no lid lag], [anicteric sclera] Mouth: [no lip lesion], [mucus membranes moist] Cardiovascular: [S1S2 reg], [no murmur], [positive DP pulse bilateral] Lungs: [CTA bilateral], [no rhonchi, no rales] , [no accessory muscle use] Abdominal: [soft], [ nontender to palpation], [no guarding], [no appreciable organomegaly] Ext: [no gross muscle atrophy], [no edema], [no contractures], [right first toe erythematous, with onychomycosis. Wound at the base of the first toe, 1 x 1 cm with minimal discharge.] Neuro: [no focal neuro deficits] Psych: [Alert], [oriented], [appropriate affect] - Labs CBC & Chem 7: 12/13/17 11:21 12/16/17 06:46 Labs: Abnormal Lab Results - Last 24 Hours (Table) 12/15/17 12/15/17 12/16/17 Range/Units 16:27 20:44 06:46 BUN 29 H (9-20) mg/dL Creatinine 2.18 H (0.66-1.25) mg/dL POC Glucose (mg/dL) 144 H 145 H (75-99) mg/dL Calcium 8.3 L (8.4-10.2) mg/dL Microbiology - Last 24 Hours (Table) 12/14/17 09:01 Blood Culture - Preliminary Blood No Growth after 48 hours 12/13/17 12:29 Gram Stain - Final Toe - Right First Wound Culture - Final Assessment and Plan Assessment: Assessment and Plan 1. OM of the R toe: Patient is afebrile with no leukocytosis. He did fail outpatient Augmentin PO treatment. Foot XR does not show OM. ESR elevated at 20 , CRP is within normal limits. Bone scan consistent with gastroenteritis. Wound culture negative. Blood culture prelim negative after 24 hours. Continue Vancomycin 1500 IV per levels and Pipercillin/Tazobactam 3.375g IV TID. Pain management with Tylenol and [place] PO PRN. Patient will need PICC line on Sunday for 6 weeks of IV antibiotics. ID recommendations appreciated. FU BCx (final), ID consult 2. CKD stage IV: BUN 29 Cr 2.18 GFR 26. Appears at baseline since 2013. Avoid nephrotoxins. Continue NS at 100 cc/h. Daily BMP. FU Nephro outPT 3. Hypertension: BP 140/73. No medications at home (previously taken off ACEi due to hyperK). Monitor vitals, adjust medications as necessary. 4. Diabetes Mellitus: A1c 6.0 08/2017. POC glucose 82. ISS. Regular accuchecks. Diabetic diet. Hypoglycemic precautions. 5. Hypothyroidism: TSH 0.220 08/2017. Continue Synthroid 150 mcg PO QD. TSH within normal limits. 6. ASCVD risk: Continue ASA 81 mg PO QD, Lipitor 20 mg PO QHS. 7. DVT/GI Prophylaxis: Heparin 5000 units SUBCUT BID. Pepcid 20 mg PO BID. Resolved: Elevated bicarbonate Bone scan consistent with OM. Will need 6 weeks of IV Abx. Agreeable for placement at [facility] in the meantime.
[2017-12-16 16:44] LABS: Glucose,Whole Blood 122 mg/dL (75-99)
[2017-12-16] MEDS: ATORVASTATIN 20 MG TAB PO SCH (20:52)
[2017-12-16 21:05] LABS: Glucose,Whole Blood 154 mg/dL (75-99)
[2017-12-17] MEDS: PIPERACILLIN-TAZOBACTAM 3.375 GM in DEXTROSE/WATER 1 50ML.BAG IVPB SCH ×2 (04:32→11:23)
[2017-12-17] MEDS: LEVOTHYROXINE 75 MCG TAB PO SCH (06:28)
[2017-12-17 07:21] LABS: Glucose,Whole Blood 90 mg/dL (75-99)
[2017-12-17 08:02] VITALS: RESP 16
[2017-12-17] MEDS: INSULIN ASPART 100 UNIT/ML 1 ML 10 ML VIAL SQ SCH ×3 (08:12→17:43)
[2017-12-17] MEDS: HEPARIN SODIUM,PORCINE 5,000 UNIT/ML 1 ML VIAL SQ SCH (08:20)
[2017-12-17] MEDS: ALLOPURINOL 100 MG TAB PO SCH (08:20)
[2017-12-17] MEDS: ASPIRIN 81 MG PO SCH (08:20)
[2017-12-17] MEDS: FAMOTIDINE 20 MG TAB PO SCH (08:20)
--- NOTE | 2017-12-17 08:55 | P.PN ---
Subjective Patient is seen in follow-up for chronic kidney disease. Patient has chronic kidney disease stage IIIB with baseline creatinine in the range of 1.8-2.2. Denies any nausea vomiting or diarrhea. Admits to good urine output. Vital signs are stable. General: The patient appeared well nourished and normally developed. HEENT: Head exam is unremarkable. Neck is without jugular venous distension. LUNGS: Lungs are clear to auscultation and percussion. Breath sounds decreased. HEART: Rate and Rhythm are regular. First and second heart sounds normal. No murmurs, rubs or gallops. ABDOMEN: Abdominal exam reveals normal bowel sounds. Non-tender and non- distended. No evidence of peritonitis. EXTREMITITES: No clubbing, cyanosis, or edema. Objective - Vital Signs Vital signs: Vital Signs Temp 98.6 F 12/17/17 07:14 Pulse 44 L 12/17/17 07:14 Resp 16 12/17/17 07:14 BP 133/57 12/17/17 07:14 Pulse Ox 95 12/17/17 07:14 Intake & Output 12/16/17 12/17/17 12/17/17 18:59 06:59 18:59 Intake Total 300 550 Balance 300 550 Intake: Intake, IV Titration 300 50 Amount Piperacillin-Tazobactam 3 50 50 .375 gm In Dextrose/Water 1 50ml.bag @ 12.5 mls/hr IVPB Q8H [facility] Rx#: [id number] Vancomycin 1,500 mg In 250 Sodium Chloride 0.9% 250 ml @ 125 mls/hr IVPB ONCE ONE Rx#:[id number] Oral 500 Other: # Voids 2 # Bowel Movements 2 - Labs CBC & Chem 7: 12/13/17 11:21 12/16/17 06:46 Labs: Abnormal Lab Results - Last 24 Hours (Table) 12/16/17 12/16/17 Range/Units 16:41 20:49 POC Glucose (mg/dL) 122 H 154 H (75-99) mg/dL Microbiology - Last 24 Hours (Table) 12/14/17 09:01 Blood Culture - Preliminary Blood No Growth after 48 hours Assessment and Plan Plan: Assessment: 1. 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 GFR at baseline. 2. Toe infection secondary to cat bite failed outpatient antibiotics. Currently on IV antibiotics. 3. Hypertension with chronic kidney disease. Controlled. 4. Diabetes mellitus. Plan: Continue antibiotics per infectious disease. Monitor vancomycin levels. Target level less than 20. Okay to place PICC line in the dominant arm. Continue to monitor renal function and urine output.
[2017-12-17] MEDS ORDERED: VANCOMYCIN 1,500 MG in SODIUM CHLORIDE 0.9% 250 ML IVPB ONE (09:00)
--- NOTE | 2017-12-17 09:23 | CDI ---
Documentation Clarification Form Date: 12/17/2017 CDS: Miladis Drake, SANTOSH, CCDS Admit Date: 12/13/2017 Patient Name: Zay Clifford Discharge Date: ATTENTION: The Clinical Documentation Specialists (CDI) and [facility] Coding Staff appreciate your assistance in clarifying documentation. Please respond to the clarification below the line at the bottom and electronically sign. The CDI & [facility] Coding staff will review the response and follow-up if needed. Please note: Queries are made part of the Legal Health Record. If you have any questions, please contact the author of this message via ITS. Dr. Shelby Reyes, Clarification of Clinical Findings: Please clarify the documentation in your progress notes: The patient's bone scan of the right great toe on 12/14 is positive for "osteomyelitis". Per your progress notes on 12/15 & 12/16: "Bone scan consistent with gastroenteritis." The patient is admitted with a cat bite to his right great toe, developed an ulcer, is diabetic & positive bone scan for osteomyelitis to be discharged to rehab with a PICC line for IV antibiotics. YONATAN
[2017-12-17] MEDS ORDERED: LIDOCAINE 2% SYG (PF) 100 MG/5 ML MISCELLANE ONE (10:20)
[2017-12-17] MEDS ORDERED: IOPAMIDOL-250 50ML BTL INTRAARTER ONE (10:32)
--- NOTE | 2017-12-17 11:42 | IR ---
EXAMINATION TYPE: IR cvc insert >=5 years and left upper extremity venogram DATE OF EXAM: 12/17/2017 COMPARISON: NONE CLINICAL HISTORY: Infection Needs long-term intravenous access for antibiotics. PROCEDURE: After informed consent, the skin overlying the left cephalic vein was localized with ultrasound and n oted to be compressible and patent. An ultrasound image was obtained and submitted on the patient's chart. The overlying skin was prepped and draped and Lidocaine was used for local anesthesia. A ski n diego was made with a scalpel. Access was gained to the vein under ultrasound guidance with a 21 ga uge needle and a 0.018 inch wire was advanced. Access site was dilated with Peel-Away sheath and cat heter tailored to the appropriate length. Catheter could not be advanced centrally with standard jose dewire. Gentle hand injection of contrast material was performed showing patent cephalic, subclavian veins. 0.018 inch angle Glidewire was used and the catheter advanced such that the distal tip is at t he cavoatrial junction. Spot image was obtained verifying placement. Catheter was fixed to the skin and a sterile dressing was placed following hemostasis. Catheter was aspirated and flushed with anahi ine. Patient was discharged in stable condition without complication. Maximal barrier technique is u tilized. Ultrasound image is documented on the chart. Ultrasound used with sterile technique. Fluoro time and fluoroscopic images submitted to document procedure: 7.7 fluoroscopy time, 354 intrao perative C-arm images IMPRESSION: STATUS POST ULTRASOUND AND FLUOROSCOPIC GUIDED PICC LINE PLACEMENT, venography as describ ed, READY FOR USE. THIS PROCEDURE WAS PERFORMED BY THE UNDERSIGNED.
[2017-12-17 11:48] LABS: Calcium 8.8 mg/dL (8.4-10.2); Potassium 4.5 mmol/L (3.5-5.1)
[2017-12-17 11:51] LABS: Glucose,Whole Blood 120 mg/dL (75-99)
[2017-12-17 15:00] VITALS: BP 143/66; PULSE 49; TEMP 97.8
[2017-12-17] MEDS ORDERED: AMPICILLIN-SULBACTAM 3 GM in SODIUM CHLORIDE 0.9% 100 ML IVPB SCH (16:00)
--- NOTE | 2017-12-17 17:00 | P.DS ---
Providers Date of admission: 12/13/17 12:36 Expected date of discharge: 12/17/17 Attending physician: Cassandra Martinez DO Consults: 12/13/17 16:03 Consult Physician Routine Consulting Provider: Pipe Hoffman Consult Reason/Comments: Diabetic foot infection Do you want consulting provider notified?: Yes 12/15/17 11:10 Consult Physician Routine Consulting Provider: Christel Chun Consult Reason/Comments: approval for picc, known pt Do you want consulting provider notified?: Yes Primary care physician: Stated None Hospital Course: The patient is an 87-year-old male with a past medical history of hypertension, diabetes, CKD, hypothyroidism, COPD, hyperlipidemia who presented to the ED for right toe pain and swelling. The patient was bit by a cat on that toe 12 days prior to admission. He initially presented to the ED and was discharged home with Augmentin though failed to improve and subsequently returned to the ED. He was thereby admitted for right toe cellulitis with a failure of outpatient therapy. Initial foot x-ray were negative for osteomyelitis. ESR was elevated at 20. The patient was placed on Empiric Vancomycin and Zosyn. Infectious disease was consulted and recommended bone scan which revealed findings suspicious for osteomyelitis of the right great toe distal phalanx. Furthermore , nephrology was consulted for CKD and adjustment of IV abxs. ID recommended prolonged course of IV Abxs. The kidney function remained stable while inpatient. On 12/17/17, a PICC line was placed and the patient was susbequently discharged to [facility] on Unasyn. Physical Examination General: Awake, alert, in no acute distress HEENT: NC/AT, anicteric sclerae, moist conjunctiva, no lid-lag, PERRLA, oropharynx clear, no erythema, exudates Cardiovascular: S1/S2 wnl, no murmurs, rubs, or gallops Lungs: Clear to auscultation, normal respiratory effort, no accessory muscle use Abdominal: Soft, nontender, non-distended, no guarding, rebound, or rigidity, normoactive bowel sounds Skin: Warm, dry Extremities: R 1st toe w/ ulcer at base 1 cm x 1 cm, minimal drainage, mild erythema Psychiatric: Alert and oriented to person, place and time, appropriate affect, Intact judgment Neuro: CN II-XI grossly intact, sensation to light touch grossly present throughout, no focal sensory deficits Discharge diagnosis: 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 Patient Condition at Discharge: Good Plan - Discharge Summary Discharge Rx Participant: No New Discharge Prescriptions: New Ampicillin-Sulbactam [Unasyn] 3 gm IVPB Q12H vial Continue Levothyroxine Sodium 150 mcg PO DAILY Allopurinol 100 mg PO DAILY Atorvastatin [Lipitor] 20 mg PO HS Cholecalciferol (Vitamin D3) [Vitamin D3] 2,000 unit PO DAILY Aspirin [Adult Low Dose Aspirin EC] 81 mg PO DAILY Furosemide [Lasix] 40 mg PO DAILY #30 tab Discharge Medication List Allopurinol 100 mg PO DAILY 10/20/13 [History] Levothyroxine Sodium 150 mcg PO DAILY 10/20/13 [History] Atorvastatin [Lipitor] 20 mg PO HS 01/05/17 [History] Aspirin [Adult Low Dose Aspirin EC] 81 mg PO DAILY 08/28/17 [History] Cholecalciferol (Vitamin D3) [Vitamin D3] 2,000 unit PO DAILY 08/28/17 [History] Furosemide [Lasix] 40 mg PO DAILY #30 tab 08/31/17 [Rx] Ampicillin-Sulbactam [Unasyn] 3 gm IVPB Q12H vial 12/17/17 [Rx] Follow up Appointment(s)/Referral(s): None,Stated [Primary Care Provider] - 1-2 days Patient Instructions/Handouts: Animal Bite (ED) Discharge Disposition: TRANSFER TO SNF/ECF
[2017-12-17 17:37] LABS: Glucose,Whole Blood 110 mg/dL (75-99)
--- NOTE | 2017-12-17 21:41 | P.PN ---
Subjective Progress Note Date: 12/17/17 Pleasant 79-year-old male resents to Hospital with increasing pain and swelling to his right foot at the toe as well as injury to the distal aspect of the right leg. The patient relates that he has 4 pet cats at the home and generally they do well. Patient relates that the litter boxes in the bathroom, the cat alireza was in the restroom with him he was sitting on the toilet. Apparently he somehow agitated the cat while he was using it's litter box, resulting in the cat biting him on the distal aspect of the right great toe and scratching the lower aspect of his leg. Despite being cared for in the outpatient setting it worsened he has increasing swelling and some pain and Was Brought in the Hospital for Admission. The Patient Relates He Is Feeling Just Slightly Better and Is Not Having High-Grade Fevers Chills Rigors or Sweats at This Time. He Is Quite Hard of Hearing. 12/14/2017 patient is feeling better today. No new complaints. We discussed that the bone scan has come back positive for the osteomyelitis of the great toe. He will need a course of intravenous antibiotic therapy. IV access will be needed also. Patient denies new complaints 12/17/2017 patient is feeling better today. Is getting ready for his transfer to the extended care facility to complete his course of intravenous antibiotic therapy. The patient's children are present in their questions are answered. Objective - Vital Signs Vital signs: Vital Signs Temp 97.8 F 12/17/17 14:37 Pulse 49 L 12/17/17 14:37 Resp 16 12/17/17 14:37 BP 143/66 12/17/17 14:37 Pulse Ox 95 12/17/17 14:37 Intake & Output 12/17/17 12/17/17 12/18/17 06:59 18:59 06:59 Intake Total 550 700 Balance 550 700 Intake: Intake, IV Titration 50 Amount Piperacillin-Tazobactam 3 50 .375 gm In Dextrose/Water 1 50ml.bag @ 12.5 mls/hr IVPB Q8H [facility] Rx#: [id number] Oral 500 700 Other: # Voids 2 2 # Bowel Movements 2 - Exam 79-year-old male hard of hearing pleasant HEENT: Anicteric conjunctiva are pink and moist nasal mucosa grossly intact without significant lesions, there is no thrush. Significant cranial nerve VIII defects Neck: The neck is supple without significant lymphadenopathy or thyromegaly. Lungs: Symmetrical air entry. Expiratory wheezes no bronchial sounds on dullness or cough any Heart: Regular rate and rhythm with an audible S1-S2, no S3 no S4. There is no significant murmur click or rub, PMI was nondisplaced. Abdomen: Mildly obese Positive bowel sounds soft and nontender without palpable masses or organomegaly. There was no guarding or rebound. Extremities: The upper extremities have excellent pulses they are symmetric, no significant petechiae or telangiectasia. No splinter hemorrhages were noted. Left lower extremity without any abnormalities. Right foot shows evidence of the significant swelling to the right great toe with a distal ulceration. There is no expressible purulence. There is the ulceration to the right calf area laterally he relates from the cat scratch. No purulence. There is no significant ascending erythema and there is no lymphadenopathy to the right groin. No other abnormal lymphadenopathy is noted Neuro: Awake alert oriented to person place and time. There are no acute new gross focal sensory motor deficits. Has cranial nerve VIII deficiency - Labs CBC & Chem 7: 12/13/17 11:21 12/17/17 11:04 Labs: Abnormal Lab Results - Last 24 Hours (Table) 12/17/17 12/17/17 12/17/17 Range/Units 11:04 11:49 17:35 Chloride 109 H (98-107) mmol/L BUN 26 H (9-20) mg/dL Creatinine 2.06 H (0.66-1.25) mg/dL Glucose 113 H (74-99) mg/dL POC Glucose (mg/dL) 120 H 110 H (75-99) mg/dL Microbiology - Last 24 Hours (Table) 12/14/17 09:01 Blood Culture - Preliminary Blood No Growth after 72 hours Laboratory Results WBC 8.4 k/uL (3.8-10.6) 12/13/17 11:21 RBC 4.69 m/uL (4.30-5.90) 12/13/17 11:21 Hgb 14.7 gm/dL (13.0-17.5) 12/13/17 11:21 Hct 46.8 % (39.0-53.0) 12/13/17 11:21 MCV 99.8 fL (80.0-100.0) 12/13/17 11:21 MCH 31.4 pg (25.0-35.0) 12/13/17 11:21 MCHC 31.4 g/dL (31.0-37.0) 12/13/17 11:21 RDW 13.5 % (11.5-15.5) 12/13/17 11:21 Plt Count 250 k/uL (150-450) 12/13/17 11:21 Neutrophils % 76 % 12/13/17 11:21 Lymphocytes % 16 % 12/13/17 11:21 Monocytes % 4 % 12/13/17 11:21 Eosinophils % 2 % 12/13/17 11: Basophils % 1 % 12/13/17 11:21 Neutrophils # 6.4 k/uL (1.3-7.7) 12/13/17 11:21 Lymphocytes # 1.3 k/uL (1.0-4.8) 12/13/17 11:21 Monocytes # 0.4 k/uL (0-1.0) 12/13/17 11:21 Eosinophils # 0.2 k/uL (0-0.7) 12/13/17 11:21 Basophils # 0.1 k/uL (0-0.2) 12/13/17 11:21 ESR 20 mm/hr (0-15) H 12/14/17 08:08 PT 10.2 sec (9.0-12.0) 12/15/17 05:19 INR 1.0 (<1.2) 12/15/17 05:19 Sodium 140 mmol/L (137-145) 12/17/17 11:04 Potassium 4.5 mmol/L (3.5-5.1) 12/17/17 11:04 Chloride 109 mmol/L (98-107) H 12/17/17 11:04 Carbon Dioxide 26 mmol/L (22-30) 12/17/17 11:04 Anion Gap 5 mmol/L 12/17/17 11:04 BUN 26 mg/dL (9-20) H 12/17/17 11:04 Creatinine 2.06 mg/dL (0.66-1.25) H 12/17/17 11:04 Est GFR (CKD-EPI)AfAm 32 (>60 ml/min/1.73 sqM) 12/17/17 11:04 Est GFR (CKD-EPI)NonAf 28 (>60 ml/min/1.73 sqM) 12/17/17 11:04 Glucose 113 mg/dL (74-99) H 12/17/17 11:04 POC Glucose (mg/dL) 110 mg/dL (75-99) H 12/17/17 17:35 POC Glu Vault Maker ID Rosangela Campos 12/17/17 17:35 Plasma Lactic Acid Peter 1.3 mmol/L (0.7-2.0) 12/13/17 11:21 Calcium 8.8 mg/dL (8.4-10.2) 12/17/17 11:04 C-Reactive Protein <5.0 mg/L (<10.0) 12/14/17 08:08 TSH 0.839 mIU/L (0.465-4.680) 12/15/17 05:19 Urine Color Light Yellow 12/13/17 19:30 Urine Appearance Clear (Clear) 12/13/17 19:30 Urine pH 6.5 (5.0-8.0) 12/13/17 19:30 Ur Specific Haskell 1.009 (1.001-1.035) 12/13/17 19:30 Urine Protein 1+ (Negative) H 12/13/17 19:30 Urine Glucose (UA) Negative (Negative) 12/13/17 19:30 Urine Ketones Negative (Negative) 12/13/17 19:30 Urine Blood Trace (Negative) H 12/13/17 19:30 Urine Nitrite Negative (Negative) 12/13/17 19:30 Urine Bilirubin Negative (Negative) 12/13/17 19:30 Urine Urobilinogen <2.0 mg/dL (<2.0) 12/13/17 19:30 Ur Leukocyte Esterase Negative (Negative) 12/13/17 19:30 Urine WBC <1 /hpf (0-5) 12/13/17 19:30 Random Vancomycin 10.7 ug/mL 12/16/17 06:46 Microbiology 12/14/17 09:01 Blood Blood Culture - Preliminary No Growth after 72 hours 12/13/17 12:29 Toe - Right First Gram Stain - Final 12/13/17 12:29 Toe - Right First Wound Culture - Final 12/13/17 19:30 Urine,Clean Catch Urine Culture - Final Assessment and Plan (1) Cat bite Narrative/Plan: 87-year-old male presents to Hospital with complaints of increasing pain and swelling to the right great toe status post cat bite. With the lack of stability and improvement after being on oral antibiotic therapy with Augmentin is now admitted and is on antibiotic therapy with vancomycin and piperacillin tazobactam. Wound culture is in process. Will further help direct antibiotic therapy. Local wound care is requested with therahoney gel which he be changed daily for now. Elevate the limb while at rest There some abnormalities to the x-ray was asked for a bone scan to further evaluate the possibility of underlying bony infection. 12/14/2017 patient is comfortable today. 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 This is discussed with the patient that he will have a need for outpatient intravenous antibiotic therapy. Likely will be going to rehab. Will need IV access to be placed. If no positive cultures are noted could utilize [facility] care facility for treatment of the cat bite related osteomyelitis. Continue local wound care doing well with the therahoney dressing. 12/17/2017 patient is showing further improvement. As noted the bone scan is positive for osteomyelitis to the right great toe. Antibiotic therapy is streamlined to Unasyn to complete his 6 weeks of antibiotic therapy. He'll follow-up in the office in 3 and 6 weeks. Weekly blood work as requested CBC with differential with a BMP sed rate and CRP. The severity of the infection is related to the patient's children who are present in that treating the ostial modest the great toe is of great importance to salvage the toe because of such an important part of his balance. Local wound care with the therahoney should be continued every Sunday and follow-up in the office as noted. Status: Acute Code(s): W55.01XA - BITTEN BY CAT, INITIAL ENCOUNTER SNOMED Code(s): 791299893 (2) Diabetic foot infection Status: Acute Code(s): E11.628 - TYPE 2 DIABETES MELLITUS WITH OTHER SKIN COMPLICATIONS; L08.9 - LOCAL INFECTION OF THE SKIN AND SUBCUTANEOUS TISSUE, UNSP SNOMED Code(s): 838885223
== END 2017-12-17 18:09 | DRG 638 ==
LOC: EC 10:34 → 4MS4W 12:36
PROVIDERS: ADMIT Internal Medicine; ATTEND Internal Medicine
PROC: 02HV33Z Insertion of Infusion Device into Superior Vena Cava, Percutaneous Approach (ICD-10-PCS; principal; 2017-12-17 10:08)
PROC: B5181ZA Fluoroscopy of Superior Vena Cava using Low Osmolar Contrast, Guidance (ICD-10-PCS; 2017-12-17 10:08)
PROC: B548ZZA Ultrasonography of Superior Vena Cava, Guidance (ICD-10-PCS; 2017-12-17 10:08)
DX: E11.69 Type 2 diabetes mellitus with other specified complication (principal); M86.9 Osteomyelitis, unspecified; I13.0 Hypertensive heart and chronic kidney disease with heart failure and stage 1 through stage 4 chronic kidney disease, or unspecified chronic kidney disease; N18.4 Chronic kidney disease, stage 4 (severe); E03.9 Hypothyroidism, unspecified; D63.1 Anemia in chronic kidney disease; E11.22 Type 2 diabetes mellitus with diabetic chronic kidney disease; E78.5 Hyperlipidemia, unspecified; F32.9 Major depressive disorder, single episode, unspecified; I71.4 Abdominal aortic aneurysm, without rupture; I50.9 Heart failure, unspecified; H91.90 Unspecified hearing loss, unspecified ear; G51.0 Bell's palsy; E87.8 Other disorders of electrolyte and fluid balance, not elsewhere classified; L03.031 Cellulitis of right toe; E11.621 Type 2 diabetes mellitus with foot ulcer; L97.519 Non-pressure chronic ulcer of other part of right foot with unspecified severity; J44.9 Chronic obstructive pulmonary disease, unspecified; Z87.891 Personal history of nicotine dependence; Z83.3 Family history of diabetes mellitus; Z79.82 Long term (current) use of aspirin; Z79.890 Hormone replacement therapy; Z90.49 Acquired absence of other specified parts of digestive tract; Z98.890 Other specified postprocedural states; W55.01XA Bitten by cat, initial encounter
CPT/HCPCS: 36415; 36569; 76937; 77001; 78315; 80048; 80202; 81001; 83605; 84443; 85025; 85610; 85652; 86140; 87040; 87070; 87086; 87205; 96365; 96366; 99284

== ENCOUNTER 2018-09-12 13:00 | Emergency (ER) | payer MEDICARE ==
[2018-09-12 13:08] VITALS: RESP 18
[2018-09-12 14:25] LABS: Basophils % (A) 1 %; Eosinophils # (A) 0.2 k/uL (0-0.7); Eosinophils % (A) 2 %; HCT 40.8 % (39.0-53.0); Lymphocytes % (A) 12 %; MCH 30.9 pg (25.0-35.0); MCHC 31.9 g/dL (31.0-37.0); MCV 96.9 fL (80.0-100.0); Monocytes # (A) 0.5 k/uL (0-1.0); Monocytes % (A) 6 %; Neutrophils # (A) 6.1 k/uL (1.3-7.7); Neutrophils % (A) 78 %; Platelet Count 305 k/uL (150-450); RBC 4.21 m/uL (4.30-5.90); RDW 15.1 % (11.5-15.5); WBC 7.9 k/uL (3.8-10.6)
--- NOTE | 2018-09-12 14:29 | ED ---
General Adult HPI - General Chief complaint: Weakness Stated complaint: swelling to hands/feet Time Seen by Provider: 09/12/18 13:13 Source: patient, family, RN notes reviewed, old records reviewed Mode of arrival: ambulatory Limitations: physical limitation - History of Present Illness Initial comments: 88-year-old male patient passed history of CHF, COPD, type 2 diabetes, chronic kidney disease presents to ED with chief complaint of one week of swelling of hands and feet. 2 days of increased urination. Patient reports some pain in hands which is chronic from arthritis. Patient denies any chest pain or shortness of breath. History from family states that they want to ensure that he is not expressing kidney failure. Patient was due to see his health information internship, however they relate his symptoms to the health information internship reportedly and the recommendation was to present to ER. Denies any other complaints at this time. Systemic: Pt denies fatigue, fever/chills, rash. Pt denies weakness, night sweats, weight loss. Neuro: Pt denies headache, visual disturbances, syncope or pre-syncope. HEENT: Pt denies ocular discharge or irritation, otalgia, rhinorrhea, pharyngitis or notable lymphadenopathy. Cardiopulmonary: Pt denies chest pain, SOB, heart palpitations, dyspnea on exertion. Abdominal/GI: Pt denies abdominal pain, n/v/d. : Pt denies dysuria, burning w/ urination, frequency/urgency. Denies new onset urinary or bowel incontinence. MSK: Pt denies myalgia, loss of strength or function in extremities. Neuro: Pt denies new onset weakness, paresthesias. - Related Data Home Medications Medication Instructions Recorded Confirmed Allopurinol 100 mg PO DAILY 10/20/13 09/12/18 Levothyroxine Sodium 150 mcg PO DAILY 10/20/13 09/12/18 Atorvastatin [Lipitor] 20 mg PO HS 01/05/17 09/12/18 Aspirin [Adult Low Dose Aspirin EC] 81 mg PO DAILY 08/28/17 09/12/18 Benazepril HCl 40 mg PO DAILY 09/12/18 09/12/18 Previous Rx's Medication Instructions Recorded Furosemide [Lasix] 40 mg PO DAILY #30 tab 08/31/17 Allergies Allergy/AdvReac Type Severity Reaction Status Date / Time No Known Allergies Allergy Verified 09/12/18 13:24 Review of Systems ROS Statement: Those systems with pertinent positive or pertinent negative responses have been documented in the HPI. ROS Other: All systems not noted in ROS Statement are negative. Past Medical History Past Medical History: Heart Failure, COPD, Diabetes Mellitus, Hearing Disorder / Deafness, Hyperlipidemia, Hypertension, Pneumonia, Thyroid Disorder Additional Past Medical History / Comment(s): AAA, bells palsy [id number] History of Any Multi-Drug Resistant Organisms: None Reported Past Surgical History: Cholecystectomy Additional Past Surgical History / Comment(s): Lasik 2009, Recent Leg surgery in August 2013 "Laser for vericose veins" Past Anesthesia/Blood Transfusion Reactions: No Reported Reaction Past Psychological History: Depression Smoking Status: Former smoker Past Alcohol Use History: None Reported Past Drug Use History: None Reported - Past Family History Mother Family Medical History: Diabetes Mellitus Sister(s) Family Medical History: Diabetes Mellitus General Exam - General Exam Comments Initial Comments: Constitutional: NAD, AOX3, Pt has pleasant affect. HEENT: NC/AT, trachea midline, neck supple, no lymphadenopathy. Posterior pharynx non erythematous, without exudates. External ears appear normal, without discharge. Mucous membranes moist. Eyes PERRLA, EOM intact. There is no scleral icterus. No pallor noted. Cardiopulmonary: RRR, no murmurs, rubs or gallops, no JVD noted. Lungs CTAB in anterior and posterior more. Abdominal exam: Abdomen soft and non-distended. Abdomen non-tender to palpation in all 4 quadrants. Bowel sounds active in LLQ. No hepatosplenomegaly. No ecchymosis Neuro: CN II-XII intact. No nuchal rigidity. No raccon eyes, no ng sign, no hemotympanum. No cervical spinal tenderness. NIH 0. MSK: Mild amount of swelling of hands and feet noted, no pitting edema. No erythema. Full active range of motion of hands and feet. Capillary refill less than 2 seconds. Neurovascularly intact, sensation intact. No posterior calf tenderness bilaterally, homans sign negative bilaterally. Posterior tibialis and radial pulse +2 bilaterally. Sensation intact in upper and lower extremities. Full active ROM in upper and lower extremities, 5/5 stregnth. Limitations: physical limitation Course Vital Signs 09/12/18 13:03 Temperature 98.1 F Pulse Rate 67 Respiratory 18 Rate Blood Pressure 154/86 O2 Sat by Pulse 99 Oximetry Medical Decision Making - Medical Decision Making 88-year-old male patient passed history of CHF, COPD, type 2 diabetes, chronic kidney disease presents to ED with chief complaint of one week of swelling of hands and feet. 2 days of increased urination. Patient reports some pain in hands which is chronic from arthritis. Patient denies any chest pain or shortness of breath. History from family states that they want to ensure that he is not expressing kidney failure. Patient was due to see his health information internship, however they relate his symptoms to the health information internship reportedly and the recommendation was to present to ER. Denies any other complaints at this time. Patient vital signs stable, afebrile. Physical exam displayed: Mild amount of swelling of hands and feet noted, no pitting edema. Neurovascularly intact, sensation intact. Laboratory investigations revealed nonspecific CBC. Coagulation studies within normal limits. CMP revealed creatinine of 1.91, BUN of 42. GFR 30. This is improved from prior. BNP mildly elevated of 1860, improved from prior. Troponin negative. UA nonimmpressive. Chest x-ray revealed chronic trace right pleural effusion. Persistently enlarged heart border and mediastinal contour, known ascending thoracic aorta. Slightly more pronounced on today's exam likely from rotation. EKG not concerning for acute ischemia, unchanged from prior. Patient administered 500 mL bolus. Will follow up with primary care provider and health information internship. Case discussed with Dr. Campbell. - Lab Data Result diagrams: 09/12/18 14:00 09/12/18 14:00 Lab Results 09/12/18 09/12/18 09/12/18 Range/Units 14:00 14:00 14:00 WBC 7.9 (3.8-10.6) k/uL RBC 4.21 L (4.30-5.90) m/uL Hgb 13.0 (13.0-17.5) gm/dL Hct 40.8 (39.0-53.0) % MCV 96.9 (80.0-100.0) fL MCH 30.9 (25.0-35.0) pg MCHC 31.9 (31.0-37.0) g/dL RDW 15.1 (11.5-15.5) % Plt Count 305 (150-450) k/uL Neutrophils % 78 % Lymphocytes % 12 % Monocytes % 6 % Eosinophils % 2 % Basophils % 1 % Neutrophils # 6.1 (1.3-7.7) k/uL Lymphocytes # 1.0 (1.0-4.8) k/uL Monocytes # 0.5 (0-1.0) k/uL Eosinophils # 0.2 (0-0.7) k/uL Basophils # 0.0 (0-0.2) k/uL PT (9.0-12.0) sec INR (<1.2) APTT (22.0-30.0) sec Sodium 142 (137-145) mmol/L Potassium 4.5 (3.5-5.1) mmol/L Chloride 105 (98-107) mmol/L Carbon Dioxide 26 (22-30) mmol/L Anion Gap 11 mmol/L BUN 42 H (9-20) mg/dL Creatinine 1.91 H (0.66-1.25) mg/dL Est GFR (CKD-EPI)AfAm 35 (>60 ml/min/1.73 sqM) Est GFR (CKD-EPI)NonAf 30 (>60 ml/min/1.73 sqM) Glucose 102 H (74-99) mg/dL Plasma Lactic Acid Peter 1.2 (0.7-2.0) mmol/L Calcium 8.9 (8.4-10.2) mg/dL Phosphorus 3.9 (2.5-4.5) mg/dL Magnesium 2.2 (1.6-2.3) mg/dL Total Bilirubin 0.5 (0.2-1.3) mg/dL AST 20 (17-59) U/L ALT 12 L (21-72) U/L Alkaline Phosphatase 77 (38-126) U/L Troponin I (0.000-0.034) ng/mL NT-Pro-B Natriuret Pep pg/mL Total Protein 6.8 (6.3-8.2) g/dL Albumin 3.7 (3.5-5.0) g/dL Urine Color Urine Appearance (Clear) Urine pH (5.0-8.0) Ur Specific Eleva (1.001-1.035) Urine Protein (Negative) Urine Glucose (UA) (Negative) Urine Ketones (Negative) Urine Blood (Negative) Urine Nitrite (Negative) Urine Bilirubin (Negative) Urine Urobilinogen (<2.0) mg/dL Ur Leukocyte Esterase (Negative) Urine WBC (0-5) /hpf Ur Squamous Epith Cells (0-4) /hpf Urine Bacteria (None) /hpf Hyaline Casts (0-2) /lpf Urine Mucus (None) /hpf 09/12/18 09/12/18 09/12/18 Range/Units 14:00 14:00 14:00 WBC (3.8-10.6) k/uL RBC (4.30-5.90) m/uL Hgb (13.0-17.5) gm/dL Hct (39.0-53.0) % MCV (80.0-100.0) fL MCH (25.0-35.0) pg MCHC (31.0-37.0) g/dL RDW (11.5-15.5) % Plt Count (150-450) k/uL Neutrophils % % Lymphocytes % % Monocytes % % Eosinophils % % Basophils % % Neutrophils # (1.3-7.7) k/uL Lymphocytes # (1.0-4.8) k/uL Monocytes # (0-1.0) k/uL Eosinophils # (0-0.7) k/uL Basophils # (0-0.2) k/uL PT 10.1 (9.0-12.0) sec INR 0.9 (<1.2) APTT 28.5 (22.0-30.0) sec Sodium (137-145) mmol/L Potassium (3.5-5.1) mmol/L Chloride (98-107) mmol/L Carbon Dioxide (22-30) mmol/L Anion Gap mmol/L BUN (9-20) mg/dL Creatinine (0.66-1.25) mg/dL Est GFR (CKD-EPI)AfAm (>60 ml/min/1.73 sqM) Est GFR (CKD-EPI)NonAf (>60 ml/min/1.73 sqM) Glucose (74-99) mg/dL Plasma Lactic Acid Peter (0.7-2.0) mmol/L Calcium (8.4-10.2) mg/dL Phosphorus (2.5-4.5) mg/dL Magnesium (1.6-2.3) mg/dL Total Bilirubin (0.2-1.3) mg/dL AST (17-59) U/L ALT (21-72) U/L Alkaline Phosphatase (38-126) U/L Troponin I <0.012 (0.000-0.034) ng/mL NT-Pro-B Natriuret Pep 1860 pg/mL Total Protein (6.3-8.2) g/dL Albumin (3.5-5.0) g/dL Urine Color Urine Appearance (Clear) Urine pH (5.0-8.0) Ur Specific Eleva (1.001-1.035) Urine Protein (Negative) Urine Glucose (UA) (Negative) Urine Ketones (Negative) Urine Blood (Negative) Urine Nitrite (Negative) Urine Bilirubin (Negative) Urine Urobilinogen (<2.0) mg/dL Ur Leukocyte Esterase (Negative) Urine WBC (0-5) /hpf Ur Squamous Epith Cells (0-4) /hpf Urine Bacteria (None) /hpf Hyaline Casts (0-2) /lpf Urine Mucus (None) /hpf 09/12/18 Range/Units 14:33 WBC (3.8-10.6) k/uL RBC (4.30-5.90) m/uL Hgb (13.0-17.5) gm/dL Hct (39.0-53.0) % MCV (80.0-100.0) fL MCH (25.0-35.0) pg MCHC (31.0-37.0) g/dL RDW (11.5-15.5) % Plt Count (150-450) k/uL Neutrophils % % Lymphocytes % % Monocytes % % Eosinophils % % Basophils % % Neutrophils # (1.3-7.7) k/uL Lymphocytes # (1.0-4.8) k/uL Monocytes # (0-1.0) k/uL Eosinophils # (0-0.7) k/uL Basophils # (0-0.2) k/uL PT (9.0-12.0) sec INR (<1.2) APTT (22.0-30.0) sec Sodium (137-145) mmol/L Potassium (3.5-5.1) mmol/L Chloride (98-107) mmol/L Carbon Dioxide (22-30) mmol/L Anion Gap mmol/L BUN (9-20) mg/dL Creatinine (0.66-1.25) mg/dL Est GFR (CKD-EPI)AfAm (>60 ml/min/1.73 sqM) Est GFR (CKD-EPI)NonAf (>60 ml/min/1.73 sqM) Glucose (74-99) mg/dL Plasma Lactic Acid Peter (0.7-2.0) mmol/L Calcium (8.4-10.2) mg/dL Phosphorus (2.5-4.5) mg/dL Magnesium (1.6-2.3) mg/dL Total Bilirubin (0.2-1.3) mg/dL AST (17-59) U/L ALT (21-72) U/L Alkaline Phosphatase (38-126) U/L Troponin I (0.000-0.034) ng/mL NT-Pro-B Natriuret Pep pg/mL Total Protein (6.3-8.2) g/dL Albumin (3.5-5.0) g/dL Urine Color Light Yellow Urine Appearance Clear (Clear) Urine pH 5.5 (5.0-8.0) Ur Specific Eleva 1.013 (1.001-1.035) Urine Protein 2+ H (Negative) Urine Glucose (UA) Negative (Negative) Urine Ketones Negative (Negative) Urine Blood Small H (Negative) Urine Nitrite Negative (Negative) Urine Bilirubin Negative (Negative) Urine Urobilinogen <2.0 (<2.0) mg/dL Ur Leukocyte Esterase Negative (Negative) Urine WBC 3 (0-5) /hpf Ur Squamous Epith Cells <1 (0-4) /hpf Urine Bacteria Rare H (None) /hpf Hyaline Casts 13 H (0-2) /lpf Urine Mucus Rare H (None) /hpf Disposition Clinical Impression: Chronic kidney disease, Peripheral edema Disposition: HOME SELF-CARE Condition: Stable Instructions (If sedation given, give patient instructions): Leg Edema (ED) Additional Instructions: Patient to adhere to previously discussed treatment plan and will take medication(s) as directed. Patient to follow up with PCP in 1-2 days. Patient to return to ED if symptoms do not improve. Follow-up with primary care provider and health information internship tomorrow. Return to ER if condition worsens in any way. Is patient prescribed a controlled substance at d/c from ED?: No Referrals: Adam Ruelas MD [Primary Care Provider] - 1-2 days Patricia Cuevas MD [STAFF PHYSICIAN] - 1-2 days
[2018-09-12 14:33] LABS: Albumin 3.7 g/dL (3.5-5.0); Calcium 8.9 mg/dL (8.4-10.2); Magnesium 2.2 mg/dL (1.6-2.3); Phosphorus 3.9 mg/dL (2.5-4.5); Potassium 4.5 mmol/L (3.5-5.1); Total Bilirubin 0.5 mg/dL (0.2-1.3); Total Protein 6.8 g/dL (6.3-8.2)
[2018-09-12 14:35] LABS: INR 0.9 (<1.2); Partial Thromboplastin Time 28.5 sec (22.0-30.0); Prothrombin Time 10.1 sec (9.0-12.0)
--- NOTE | 2018-09-12 14:59 | XR ---
EXAMINATION TYPE: XR chest 2V DATE OF EXAM: 09/12/2018 COMPARISON: 08/28/2017 HISTORY: Weakness TECHNIQUE: Frontal and lateral views of the chest are obtained. FINDINGS: There is similar prominence and tortuosity of the ascending and descending thoracic aorta in comparison the prior of 09/07/2017, although slightly more pronounced on today's examination likely from rotation. Cardiomediastinal silhouette is again enlarged. Chronic trace right pleural effusion blunts the costophrenic angle. Lungs are hyperaerated suggesting underlying COPD. Diffuse osseous dem ineralization is seen. Mild multilevel degenerative changes of the spine. IMPRESSION: 1. Chronic trace right pleural effusion. 2. Persistently enlarged heart borders and mediastinal contour. 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
[2018-09-12 15:14] LABS: Appearance,Urine Clear (Clear); Bacteria,Urine Rare /hpf; Bilirubin,Urine Negative (Negative); Blood,Urine Small (Negative); Color,Urine Light Yellow; Glucose,Urine (UA) Negative (Negative); Hyaline Casts,Urine 13 /lpf (0-2); Ketones,Urine Negative (Negative); Leukocyte Esterase,Urine Negative (Negative); Mucus,Urine Rare /hpf; Nitrite,Urine Negative (Negative); PH, Urine 5.5 (5.0-8.0); Protein,Urine 2+ (Negative); Specific Gravity,Urine 1.013 (1.001-1.035); Squamous Epithelial Cell,Urine <1 /hpf (0-4); Urobilinogen,Urine <2.0 mg/dL (<2.0); WBC,Urine 3 /hpf (0-5)
[2018-09-12] MEDS ORDERED: SODIUM CHLORIDE 0.9% 500 ML 500 ML IV STA (15:38)
[2018-09-12 16:11] VITALS: BP 132/76; PULSE 59; TEMP 98.2
== END 2018-09-12 17:19 | disposition home or self-care (01) ==
LOC: EC 13:00
DX: E11.22 Type 2 diabetes mellitus with diabetic chronic kidney disease (principal); I13.0 Hypertensive heart and chronic kidney disease with heart failure and stage 1 through stage 4 chronic kidney disease, or unspecified chronic kidney disease; N18.9 Chronic kidney disease, unspecified; I50.9 Heart failure, unspecified; R60.0 Localized edema; M19.042 Primary osteoarthritis, left hand; M19.041 Primary osteoarthritis, right hand; G89.29 Other chronic pain; E07.9 Disorder of thyroid, unspecified; Z79.890 Hormone replacement therapy; Z79.82 Long term (current) use of aspirin; Z79.899 Other long term (current) drug therapy; Z87.891 Personal history of nicotine dependence
CPT/HCPCS: 36415; 71046; 80053; 81001; 83605; 83735; 83880; 84100; 84484; 85025; 85610; 85730; 93005; 96360; 99285